=== PATIENT | female | born 1930 | race Asian ===

== ENCOUNTER 2018-08-17 12:01 | Inpatient (IN) | payer MEDICARE, OTHER ==
[2018-08-17 13:40] LABS: ANION GAP 13.5 (7.0-16.0); BUN - UREA NITROGEN 20 mg/dL (7-25); CALCIUM SERUM 10.2 mg/dL (8.6-10.3); CARBON DIOXIDE 26.4 mEq/L (21.0-31.0); CHLORIDE 103 mEq/L (98-107); CREATININE - SERUM 0.7 mg/dL (0.6-1.2); GLUCOSE 121 mg/dL (70-105); POTASSIUM SERUM 3.9 mEq/L (3.5-5.1); SODIUM SERUM 139 mEq/L (136-145)
[2018-08-17 14:08] LABS: HEMATOCRIT 47.5 % (41.0-60); HEMOGLOBIN 15.7 gm/dL (12-16); MEAN CELL VOLUME 88.7 fl (81-100); MEAN CORPUSCULAR HEMOGLOBIN 29.3 pg (27.0-31.0); RED BLOOD COUNT 5.36 Mil/cmm (3.80-5.20); RED CELL DISTRIBUTION WIDTH 14.3 % (11.5-20.0)
[2018-08-17 14:09] LABS: % BASOPHILS 0.6 % (0.0-2.0); % EOSINOPHILS 1.5 % (0.0-5.0); % MONOCYTES 7.2 % (2.0-10.0); % NEUTROPHILS 60.7 % (40.0-80.0); NEUTROPHILE ABSOLUTE 3.7 Th/cmm (1.8-8.0); PLATELET COUNT 264 Th/cmm (150-400)
[2018-08-17 14:10] LABS: EOSINOPHILE ABSOLUTE 0.1 Th/cmm (0.1-0.4); LYMPHOCYTE ABSOLUTE 1.8 Th/cmm (1.5-3.0); MONOCYTE ABSOLUTE 0.4 Th/cmm (0.3-1.0)
[2018-08-17 15:05] LABS: URINE SOURCE CATH
[2018-08-17 15:07] LABS: URINE BILIRUBIN NEGATIVE (NEGATIVE); URINE BLOOD TRACE (NEGATIVE); URINE GLUCOSE (UA) NEGATIVE (NEGATIVE); URINE KETONE NEGATIVE (NEGATIVE); URINE LEUKOCYTE ESTERASE TRACE (NEGATIVE); URINE MICROSCOPIC INDICATED? YES; URINE NITRATE POSITIVE (NEGATIVE); URINE PROTEIN NEGATIVE (NEGATIVE); URINE UROBILINOGEN 0.2 E.U./dL (0.2 - 1.0)
[2018-08-17 15:09] LABS: URINE COLOR YELLOW
[2018-08-17 15:12] LABS: URINE CLARITY CLOUDY (CLEAR)
[2018-08-17 15:17] LABS: URINE BACTERIA MANY /hpf (NONE SEEN); URINE COARSE GRANULAR CAST 0-2 /lpf (NONE SEEN); URINE EPITHELIAL CELLS MODERATE /lpf (FEW); URINE RBC 0-2 /hpf (0-5)
--- NOTE | 2018-08-17 16:22 | ED Physician Chart ---
ED Chief Complaint/HPI - Patient Information Date Seen:: 08/17/18 Time Seen:: 12:15 Allergies:: Allergies Allergy/AdvReac Type Severity Reaction Status Date / Time atropine Allergy Verified 08/17/18 12:07 tetanus toxoid, adsorbed Allergy Verified 08/17/18 12:07 Vitals:: Vital Signs - 8 hr 08/17/18 12:08 Temp 98.6 F HR 65 RR 16 BP 113/58 O2 Sat % 95 Review:: Nurse's Note Reviewed ED Review of Systems - Review of Systems General/Constitutional: No fever (non communicative) ED Past Medical History - Past Medical History Obtainable: No Past Medical History: Dementia Family Medical History - Family Member Mother History Unknown: Yes ED Physical Exam - Physical Examination General/Constitutional: No distress, Non-toxic appearing Head: Atraumatic Eyes: Lids, conjuctiva normal Skin: No ecchymosis ENMT: External ears, nose nl Neck: Full ROM w/o pain, No stridor Respiratory: Nl effort/Exclusion, Clear to Auscultation Cardio Vascular: RRR GI: No tenderness/rebounding/guarding : No CVA tenderness Extremities: Full ROM Neuro/Psych: Alert/oriented (unable conduct detailed neurological), Normal sensory exam ED Labs/Radiology/EKG Results - Lab Results Results: Laboratory Tests 08/17/18 08/17/18 08/17/18 13:10 13:10 15:03 WBC 6.0 RBC 5.36 H Hgb 15.7 Hct 47.5 MCV 88.7 MCH 29.3 MCHC Differential 33.0 RDW 14.3 Plt Count 264 MPV 7.5 Add Manual Diff Neutrophils % 60.7 Lymphocytes % 30.0 Monocytes % 7.2 Eosinophils % 1.5 Basophils % 0.6 Sodium 139 Potassium 3.9 Chloride 103 Carbon Dioxide 26.4 Anion Gap 13.5 BUN 20 Creatinine 0.7 Est GFR ( Amer) TNP Est GFR (Non-Af Amer) TNP BUN/Creatinine Ratio 28.6 Glucose 121 H Calcium 10.2 Urine Source CATH Urine Color YELLOW Urine Clarity CLOUDY H Urine pH 6.0 Ur Specific [place] >= 1.030 Urine Protein NEGATIVE Urine Glucose (UA) NEGATIVE Urine Ketones NEGATIVE Urine Blood TRACE Urine Nitrate POSITIVE H Urine Bilirubin NEGATIVE Urine Urobilinogen 0.2 Ur Leukocyte Esterase TRACE H Urine RBC 0-2 Urine WBC 2-5 Ur Epithelial Cells MODERATE Urine Bacteria MANY H Coarse Granular Casts 0-2 H ED Assessment - Assessment General Assessment: dementia ED Septic Shock - . Is Septic Shock (SBP<90, OR Lactate>4 mmol\L) present?: No - <6hrs of presentation: Vital Signs: Vital Signs - 8 hr 08/17/18 12:08 Temp 98.6 F HR 65 RR 16 BP 113/58 O2 Sat % 95 ED Reassessment (Disposition) - Reassessment Reassessment Condition:: Unchanged (attending admits for change in mental status )
[2018-08-17] MEDS: Levofloxacin 500mg/100mL 500 MG/100 ML BAG IV SCH (16:48)
[2018-08-17 16:49] VITALS: BP 137/67
[2018-08-17] MEDS: D5-0.45NS 1,000 ML IV SCH (21:19)
[2018-08-18 06:18] LABS: ALB/GLOB RATIO 1.1 (1.0-1.8); ALBUMIN 3.5 gm/dL (3.7-5.3); ALKALINE PHOSPHATASE 70 U/L (34-104); ANION GAP 16.1 (7.0-16.0); BILIRUBIN,TOTAL 0.6 mg/dL (0.3-1.0); BUN - UREA NITROGEN 16 mg/dL (7-25); CALCIUM SERUM 9.4 mg/dL (8.6-10.3); CARBON DIOXIDE 20.6 mEq/L (21.0-31.0); CHLORIDE 105 mEq/L (98-107); CHOLESTEROL 166 mg/dL (<200); CREATININE - SERUM 0.7 mg/dL (0.6-1.2); GLUCOSE 124 mg/dL (70-105); HDL -HIGH DENSITY LIPOPROTEIN 35 mg/dL (23-92); POTASSIUM SERUM 3.7 mEq/L (3.5-5.1); SGOT 23 U/L (13-39); SGPT/ALT 20 U/L (7-52); SODIUM SERUM 138 mEq/L (136-145); TOTAL PROTEIN,SERUM 6.6 gm/dL (6.0-8.3); TRIGLYCERIDES 154 mg/dL (<150)
--- NOTE | 2018-08-18 07:58 | History & Physical ---
ADMIT DATE: 08/18/2018 REQUESTING PHYSICIAN: Dr. Weinstein. REASON FOR CONSULTATION: Failure to thrive, poor p.o. intake. Thank you for asking us to see this patient in consultation. HISTORY OF PRESENT ILLNESS: This is an 88-year-old female with dementia who has been having worsening clinical status and failure to thrive. The patient has had poor p.o. intake according to charts. Her history is mainly limited from lack of patient's history as well as lack of documentation. She has a history of dementia, is here to assist with placement and has not been eating well. PAST MEDICAL HISTORY: Dementia. MEDICATIONS: Have been reviewed. SOCIAL HISTORY: Unable to obtain given the patient's current state. FAMILY HISTORY: Noncontributory given the patient's current state. REVIEW OF SYSTEMS: As in HPI. All other 12-point systems are negative. PHYSICAL EXAMINATION: VITAL SIGNS: Temperature 98.6, heart rate of 65, respiratory rate 16, blood pressure is 113/58, satting 95% on room air. GENERAL: She is in no acute distress, lying in bed. HEENT: Normocephalic, atraumatic. PERRLA positive. LUNGS: Clear bilaterally. No wheezes, rales or rhonchi. HEART: Regular rate and rhythm, normal S1, S2. ABDOMEN: Soft, nontender. Bowel sounds are positive. EXTREMITIES: Show no lower extremity edema. PSYCHIATRIC: Unable to assess neurologically. Grossly intact. LABORATORY DATA: Hemoglobin of 15.7, platelets count 264. Sodium 138, potassium 3.7. Albumin is 3.5. IMAGING: None available. ASSESSMENT AND PLAN: 1. This is an 88-year-old female with dementia and failure to thrive, who presents for potential placement as well as poor p.o. intake. 2. Poor p.o. intake. 3. Failure to thrive. 4. Protein calorie malnutrition. 5. Dementia. I would recommend obtaining a calorie count in this patient and assess exactly what her needs are at this time. I did advise the nursing staff to assist with her meals and if she is not adequately able to take p.o. intake, we will look for a possible swallow evaluation and/or PEG tube placement after discussing the risks, benefits and alternatives with POA. Thank you for allowing us to participate in this patient's care. [facility]# [id number]
--- NOTE | 2018-08-18 08:32 | Diagnostic Imaging Report ---
CT scan of the brain without intravenous contrast HISTORY: Stroke, CVA Total DLP equals 563 CTDI equals 31.4 Axial sections were obtained from the base of the skull to the vertex. There is prominence/enlargement of the ventricular system size. Associated enlargement of cerebral sulci and subarachnoid cisterns. Findings are consistent with changes of generalized cerebral atrophy. No acute parenchymal abnormalities. No acute cerebral hemorrhage. Hypodensity is seen within the supratentorial white matter regions without mass effect. The findings may be associated with chronic small vessel ischemic disease. No extra-axial masses or abnormal fluid collections. Evidence of fluid and cloudiness within the mastoid air cells. Findings consistent with inflammatory change. Severe dense atherosclerotic calcification noted in the region of the vertebral and basilar arteries at the base of the skull. IMPRESSION: 1. No acute abnormalities 2. Cerebral atrophy 3. Supratentorial white matter changes that may reflect chronic small vessel ischemic disease 4. Severe atherosclerotic vascular changes 5. Cloudy fluid-filled mastoid air cells consistent with inflammatory change.
[2018-08-18 10:19] LABS: % BASOPHILS 0.6 % (0.0-2.0); % EOSINOPHILS 1.5 % (0.0-5.0); % LYMPHOCYTES 25.1 % (20.0-50.0); % NEUTROPHILS 62.8 % (40.0-80.0); EOSINOPHILE ABSOLUTE 0.1 Th/cmm (0.1-0.4); HEMATOCRIT 48.2 % (41.0-60); HEMOGLOBIN 15.5 gm/dL (12-16); LYMPHOCYTE ABSOLUTE 1.9 Th/cmm (1.5-3.0); MEAN CORPUSCULAR HEMOGLOBIN 29.2 pg (27.0-31.0); MEAN CORPUSCULAR HGB CONC 32.1 pg (28.0-36.0); MONOCYTE ABSOLUTE 0.7 Th/cmm (0.3-1.0); NEUTROPHILE ABSOLUTE 4.7 Th/cmm (1.8-8.0); PLATELET COUNT 230 Th/cmm (150-400); RED CELL DISTRIBUTION WIDTH 14.2 % (11.5-20.0); WHITE BLOOD COUNT 7.4 Th/cmm (4.8-10.8)
[2018-08-18] MEDS: D5-0.45NS 1,000 ML IV SCH (10:23)
[2018-08-18] MEDS: Levofloxacin 500mg/100mL 500 MG/100 ML BAG IV SCH (15:17)
--- NOTE | 2018-08-18 21:19 | Internal Medicine Prog Note ---
Internal Medicine Subjective - Subjective Service Date: 08/18/18 Patient is:: awake, in bed, confused Patient Complaints of:: other (failure to thrive.) Per staff patient has:: no adverse event, no episodes of fall Internal Medicine Objective - Results Result Diagrams: 08/19/18 05:16 08/19/18 05:16 Recent Labs: Laboratory Last Values WBC 7.4 Th/cmm (4.8-10.8) D 08/18/18 05:30 RBC 5.30 Mil/cmm (3.80-5.20) H 08/18/18 05:30 Hgb 15.5 gm/dL (12-16) 08/18/18 05:30 Hct 48.2 % (41.0-60) 08/18/18 05:30 MCV 91.0 fl (81-100) 08/18/18 05:30 MCH 29.2 pg (27.0-31.0) 08/18/18 05:30 MCHC Differential 32.1 pg (28.0-36.0) 08/18/18 05:30 RDW 14.2 % (11.5-20.0) 08/18/18 05:30 Plt Count 230 Th/cmm (150-400) 08/18/18 05:30 MPV 7.9 fl 08/18/18 05:30 Add Manual Diff 08/17/18 13:10 Neutrophils % 62.8 % (40.0-80.0) 08/18/18 05:30 Lymphocytes % 25.1 % (20.0-50.0) 08/18/18 05:30 Monocytes % 10.0 % (2.0-10.0) 08/18/18 05:30 Eosinophils % 1.5 % (0.0-5.0) 08/18/18 05:30 Basophils % 0.6 % (0.0-2.0) 08/18/18 05:30 Sodium 138 mEq/L (136-145) 08/18/18 05:30 Potassium 3.7 mEq/L (3.5-5.1) 08/18/18 05:30 Chloride 105 mEq/L (98-107) 08/18/18 05:30 Carbon Dioxide 20.6 mEq/L (21.0-31.0) L 08/18/18 05:30 Anion Gap 16.1 (7.0-16.0) H 08/18/18 05:30 BUN 16 mg/dL (7-25) 08/18/18 05:30 Creatinine 0.7 mg/dL (0.6-1.2) 08/18/18 05:30 Est GFR ( Amer) TNP 08/18/18 05:30 Est GFR (Non-Af Amer) TNP 08/18/18 05:30 BUN/Creatinine Ratio 22.9 08/18/18 05:30 Glucose 124 mg/dL (70-105) H 08/18/18 05:30 POC Glucose 108 MG/DL (70 - 105) H 08/17/18 16:03 Calcium 9.4 mg/dL (8.6-10.3) 08/18/18 05:30 Total Bilirubin 0.6 mg/dL (0.3-1.0) 08/18/18 05:30 AST 23 U/L (13-39) 08/18/18 05:30 ALT 20 U/L (7-52) 08/18/18 05:30 Alkaline Phosphatase 70 U/L (34-104) 08/18/18 05:30 Total Protein 6.6 gm/dL (6.0-8.3) 08/18/18 05:30 Albumin 3.5 gm/dL (3.7-5.3) L 08/18/18 05:30 Globulin 3.1 gm/dL 08/18/18 05:30 Albumin/Globulin Ratio 1.1 (1.0-1.8) 08/18/18 05:30 Triglycerides 154 mg/dL (<150) H 08/18/18 05:30 Cholesterol 166 mg/dL (<200) 08/18/18 05:30 LDL Cholesterol Direct 117 mg/dL (75-193) 08/18/18 05:30 HDL Cholesterol 35 mg/dL (23-92) 08/18/18 05:30 TSH 2.06 uIU/ml (0.34-5.60) 08/18/18 05:30 Urine Source CATH 08/17/18 15:03 Urine Color YELLOW 08/17/18 15:03 Urine Clarity CLOUDY (CLEAR) H 08/17/18 15:03 Urine pH 6.0 (4.6 - 8.0) 08/17/18 15:03 Ur Specific [place] >= 1.030 (1.005-1.030) 08/17/18 15:03 Urine Protein NEGATIVE mg/dL (NEGATIVE) 08/17/18 15:03 Urine Glucose (UA) NEGATIVE mg/dL (NEGATIVE) 08/17/18 15:03 Urine Ketones NEGATIVE mg/dL (NEGATIVE) 08/17/18 15:03 Urine Blood TRACE (NEGATIVE) 08/17/18 15:03 Urine Nitrate POSITIVE (NEGATIVE) H 08/17/18 15:03 Urine Bilirubin NEGATIVE (NEGATIVE) 08/17/18 15:03 Urine Urobilinogen 0.2 E.U./dL (0.2 - 1.0) 08/17/18 15:03 Ur Leukocyte Esterase TRACE (NEGATIVE) H 08/17/18 15:03 Urine RBC 0-2 /hpf (0-5) 08/17/18 15:03 Urine WBC 2-5 /hpf (0-5) 08/17/18 15:03 Ur Epithelial Cells MODERATE /lpf (FEW) 08/17/18 15:03 Urine Bacteria MANY /hpf (NONE SEEN) H 08/17/18 15:03 Coarse Granular Casts 0-2 /lpf (NONE SEEN) H 08/17/18 15:03 - Physical Exam Vitals and I&O: Vital Signs Temp 97.5 F 08/18/18 15:00 Pulse 74 08/18/18 15:00 Resp 18 08/18/18 16:28 BP 145/77 08/18/18 15:00 Pulse Ox 100 08/18/18 15:00 Intake & Output 08/18/18 08/18/18 08/19/18 06:59 18:59 06:59 Intake Total 1180 Balance 1180 Weight (lbs) 47.627 kg Intake: Intake, IV Amount 980 D5-0.45NS 1,000 ml @ 75 980 mls/hr IV .[id number] [facility] Rx #:[id number] Oral 200 Other: # Voids 3 # Bowel Movements 0 Weight Source Bedscale Active Medications: Current Medications Levofloxacin (Levaquin Pb) 500 mg in 100 mls @ 100 mls/hr IV Q24HR [facility] Stop: 10/16/18 15:59 Last Admin: 08/18/18 15:17 Dose: 100 mls/hr Dextrose/Sodium Chloride (D5-0.45ns) 1,000 mls @ 75 mls/hr IV .[id number] [facility] Stop: 10/16/18 19:59 Last Admin: 08/18/18 10:23 Dose: 75 mls/hr Lorazepam (Ativan) 1 mg PO BID PRN; Protocol PRN Reason: Restlessness Stop: 10/16/18 19:52 Last Admin: 08/17/18 21:17 Dose: 1 mg Physical Exam: 88 y/o female patient is worsening clinical status and failure to thrive. General: weak, demented HEENT: NC/AT, PERRLA Neck: Supple Lungs: CTAB Cardiovascular: RRR, Normal S1 Abdomen: soft, non-tender Extremities: clear Neurological: no change Internal Medicine Assmt/Plan - Assessment Assessment: Dementia. Failure to thrive. Poor oral intake. Protein calorie nutrition. - Plan Plan: Continuation of care. Monitor Labs. Continue present meds as directed. Monitor Diet/Nutritional support. Psych management per Psych. Pain Management. Fall precaution, frequent nursing rounds, and as needed restraints to prevent fall. Safety precaution. Supportive care. Continue collaborating with consulting specialists, case management and nursing team. Will Monitor patient and continue current treatment plan as ordered. Nutritional Asmnt/Malnutr-PDOC - Dietary Evaluation Malnutrition Findings (Please click <Entered> for more info): see orders.
--- NOTE | 2018-08-19 02:21 | Consultation ---
DATE OF CONSULTATION: 08/18/2018 NEUROLOGY CONSULTATION HISTORY OF PRESENT ILLNESS: An 88-year-old female with weakness. The patient is getting more confused, more weak, difficulty ambulating. PAST MEDICAL HISTORY: Dementia. MEDICATIONS: Per reconciliation. SOCIAL HISTORY: Does not smoke or drink. SURGICAL HISTORY: None recently. REVIEW OF SYSTEMS: Twelve point negative except for above. PHYSICAL EXAMINATION: VITAL SIGNS: Temperature 96.7, blood pressure 130/65, pulse is 66%. NECK: Supple. No neck bruits. CARDIAC: Normal heart sounds. LUNGS: Clear. NEUROLOGIC: The patient is awake. She will smile. She gives her name, but cannot even give me the age. She did not know what day or month. She is able to name simple objects such as pen. CRANIAL: Pupils react to light. No facial weakness. MOTOR: She will lift arms up about 4+/5, legs are about 4/5. Reflexes -1 upper extremity, difficulty getting at the knees and ankles. INVESTIGATIONS: CT scan shows some white matter changes, but otherwise no acute process. LABORATORY DATA: WBC 7.4, hemoglobin 15.5, platelets normal. Sodium 138, potassium 3.7, BUN and creatinine are okay. TSH okay. UA positive for wbc's and bacteria. ASSESSMENT: 1. Weakness. 1. Encephalopathy. 2. Dementia. 3. Possible urinary tract infection. MANAGEMENT: The patient will have lab studies done. JOB# [id number]
--- NOTE | 2018-08-19 04:34 | Consultation ---
DATE OF CONSULTATION: 08/18/2018 INFECTIOUS DISEASE CONSULTATION REFERRING PHYSICIAN: Dr. Weinstein. REASON FOR CONSULTATION: UTI. HISTORY OF PRESENT ILLNESS: The patient is an 88-year-old female with past medical history of dementia, admitted to the hospital for failure to thrive, poor oral intake, and confusion. On initial evaluation, the patient's temperature was 98.6 degrees Fahrenheit and WBC count was 6000. Further workup revealed UTI and started on Levaquin. ID consult was called for further antibiotic management. PAST MEDICAL HISTORY: Includes dementia. ALLERGIES: ATROVENT, TETANUS TOXOID. MEDICATIONS: As per medication reconciliation sheet. Antibiotic dubose, Levaquin. FAMILY HISTORY: Not available. REVIEW OF SYSTEMS: GENERAL: The patient has no fever, no chills. HEENT: No diplopia, no photophobia, no sore throat. RESPIRATORY: No cough, no shortness of breath. CARDIOVASCULAR: No chest pain or palpitation. GASTROINTESTINAL: No nausea, no vomiting, no diarrhea, no constipation. The patient has poor oral intake. GENITOURINARY: No dysuria, no hematuria. PHYSICAL EXAMINATION: VITAL SIGNS: Current vital signs shows temperature 97.5 degrees Fahrenheit, pulse 82, respiration is 18, blood pressure 168/68. GENERAL: The patient is comfortable, lying in bed, in no acute distress. HEENT: Head is normocephalic, atraumatic. Oral cavity moist, pink tongue. NECK: Supple. No JVD, no carotid bruit. Trachea in midline. CHEST: Bilateral breath sounds. No crackles or wheezing. HEART: S1, S2 within normal limits. Regular rhythm. No murmur or gallop. ABDOMEN: Soft, nontender, nondistended. Bowel sounds present. EXTREMITIES: No cyanosis, no clubbing, no edema. NEUROLOGIC: Alert and awake ____. Speech is clear. LABORATORY DATA: Current lab shows WBC count is 7200. Sodium is 144, potassium 2.7, chloride 106, bicarbonate is 22.4, BUN is 80, creatinine 2.4. IMPRESSION: 1. Urinary tract infection. 2. Failure to thrive. 3. Dementia. 4. Gastroparesis. RECOMMENDATIONS: We will continue ____. Continue Levaquin. Depending on the culture, we will define final antibiotic therapy. Gram-negative rods more than 100,000. [facility]# [id number]
[2018-08-19 05:49] LABS: % BASOPHILS 0.3 % (0.0-2.0); % EOSINOPHILS 0.8 % (0.0-5.0); % MONOCYTES 8.9 % (2.0-10.0); EOSINOPHILE ABSOLUTE 0.1 Th/cmm (0.1-0.4); LYMPHOCYTE ABSOLUTE 1.6 Th/cmm (1.5-3.0); MEAN CELL VOLUME 87.5 fl (81-100); MEAN CORPUSCULAR HEMOGLOBIN 28.8 pg (27.0-31.0); MEAN CORPUSCULAR HGB CONC 32.9 pg (28.0-36.0); MONOCYTE ABSOLUTE 0.6 Th/cmm (0.3-1.0); RED BLOOD COUNT 4.86 Mil/cmm (3.80-5.20); RED CELL DISTRIBUTION WIDTH 12.8 % (11.5-20.0); WHITE BLOOD COUNT 6.3 Th/cmm (4.8-10.8)
[2018-08-19 05:59] LABS: HEMATOCRIT 42.6 % (41.0-60); PLATELET COUNT 281 Th/cmm (150-400)
[2018-08-19] MEDS: D5-0.45NS 1,000 ML IV SCH ×2 (06:07→12:16)
[2018-08-19 06:19] LABS: ANION GAP 11.4 (7.0-16.0); BUN - UREA NITROGEN 7 mg/dL (7-25); CALCIUM SERUM 9.4 mg/dL (8.6-10.3); CHLORIDE 107 mEq/L (98-107); CREATININE - SERUM 0.7 mg/dL (0.6-1.2); GLUCOSE 100 mg/dL (70-105); POTASSIUM SERUM 4.4 mEq/L (3.5-5.1); SODIUM SERUM 138 mEq/L (136-145)
[2018-08-19] MEDS ORDERED: Atenolol 100mg Tab PO SCH (09:00)
--- NOTE | 2018-08-19 13:23 | Internal Medicine Prog Note ---
Internal Medicine Subjective - Subjective Service Date: 08/19/18 Patient is:: awake, in bed, confused Patient Complaints of:: other (failure to thrive.) Per staff patient has:: no adverse event, no episodes of fall Internal Medicine Objective - Results Result Diagrams: 08/19/18 05:16 08/19/18 05:16 Recent Labs: Laboratory Last Values WBC 6.3 Th/cmm (4.8-10.8) 08/19/18 05:16 RBC 4.86 Mil/cmm (3.80-5.20) 08/19/18 05:16 Hgb 14.0 gm/dL (12-16) 08/19/18 05:16 Hct 42.6 % (41.0-60) D 08/19/18 05:16 MCV 87.5 fl (81-100) 08/19/18 05:16 MCH 28.8 pg (27.0-31.0) 08/19/18 05:16 MCHC Differential 32.9 pg (28.0-36.0) 08/19/18 05:16 RDW 12.8 % (11.5-20.0) 08/19/18 05:16 Plt Count 281 Th/cmm (150-400) D 08/19/18 05:16 MPV 6.9 fl 08/19/18 05:16 Add Manual Diff 08/17/18 13:10 Neutrophils % 64.0 % (40.0-80.0) 08/19/18 05:16 Lymphocytes % 26.0 % (20.0-50.0) 08/19/18 05:16 Monocytes % 8.9 % (2.0-10.0) 08/19/18 05:16 Eosinophils % 0.8 % (0.0-5.0) 08/19/18 05:16 Basophils % 0.3 % (0.0-2.0) 08/19/18 05:16 ESR 35 mm/hr (0-30) H 08/19/18 05:16 Sodium 138 mEq/L (136-145) 08/19/18 05:16 Potassium 4.4 mEq/L (3.5-5.1) 08/19/18 05:16 Chloride 107 mEq/L (98-107) 08/19/18 05:16 Carbon Dioxide 24.0 mEq/L (21.0-31.0) 08/19/18 05:16 Anion Gap 11.4 (7.0-16.0) 08/19/18 05:16 BUN 7 mg/dL (7-25) 08/19/18 05:16 Creatinine 0.7 mg/dL (0.6-1.2) 08/19/18 05:16 Est GFR ( Amer) TNP 08/19/18 05:16 Est GFR (Non-Af Amer) TNP 08/19/18 05:16 BUN/Creatinine Ratio 10.0 08/19/18 05:16 Glucose 100 mg/dL (70-105) 08/19/18 05:16 POC Glucose 108 MG/DL (70 - 105) H 08/17/18 16:03 Calcium 9.4 mg/dL (8.6-10.3) 08/19/18 05:16 Total Bilirubin 0.6 mg/dL (0.3-1.0) 08/18/18 05:30 AST 23 U/L (13-39) 08/18/18 05:30 ALT 20 U/L (7-52) 08/18/18 05:30 Alkaline Phosphatase 70 U/L (34-104) 08/18/18 05:30 Creatine Kinase 177 U/L (30-223) 08/19/18 05:16 C-Reactive Protein < 0.2 mg/dL (0.0-0.9) 08/19/18 05:16 Total Protein 6.6 gm/dL (6.0-8.3) 08/18/18 05:30 Albumin 3.5 gm/dL (3.7-5.3) L 08/18/18 05:30 Globulin 3.1 gm/dL 08/18/18 05:30 Albumin/Globulin Ratio 1.1 (1.0-1.8) 08/18/18 05:30 Triglycerides 154 mg/dL (<150) H 08/18/18 05:30 Cholesterol 166 mg/dL (<200) 08/18/18 05:30 LDL Cholesterol Direct 117 mg/dL (75-193) 08/18/18 05:30 HDL Cholesterol 35 mg/dL (23-92) 08/18/18 05:30 TSH 2.06 uIU/ml (0.34-5.60) 08/18/18 05:30 Urine Source CATH 08/17/18 15:03 Urine Color YELLOW 08/17/18 15:03 Urine Clarity CLOUDY (CLEAR) H 08/17/18 15:03 Urine pH 6.0 (4.6 - 8.0) 08/17/18 15:03 Ur Specific [place] >= 1.030 (1.005-1.030) 08/17/18 15:03 Urine Protein NEGATIVE mg/dL (NEGATIVE) 08/17/18 15:03 Urine Glucose (UA) NEGATIVE mg/dL (NEGATIVE) 08/17/18 15:03 Urine Ketones NEGATIVE mg/dL (NEGATIVE) 08/17/18 15:03 Urine Blood TRACE (NEGATIVE) 08/17/18 15:03 Urine Nitrate POSITIVE (NEGATIVE) 08/17/18 15:03 Urine Bilirubin NEGATIVE (NEGATIVE) 08/17/18 15:03 Urine Urobilinogen 0.2 E.U./dL (0.2 - 1.0) 08/17/18 15:03 Ur Leukocyte Esterase TRACE (NEGATIVE) 08/17/18 15:03 Urine RBC 0-2 /hpf (0-5) 08/17/18 15:03 Urine WBC 2-5 /hpf (0-5) 08/17/18 15:03 Ur Epithelial Cells MODERATE /lpf (FEW) 08/17/18 15:03 Urine Bacteria MANY /hpf (NONE SEEN) H 08/17/18 15:03 Coarse Granular Casts 0-2 /lpf (NONE SEEN) H 08/17/18 15:03 - Physical Exam Vitals and I&O: Vital Signs Temp 97.5 F 08/19/18 08:00 Pulse 73 08/19/18 08:27 Resp 18 08/19/18 09:00 BP 146/78 08/19/18 08:27 Pulse Ox 97 08/19/18 08:00 Intake & Output 08/18/18 08/19/18 08/19/18 18:59 06:59 18:59 Intake Total 1180 1000 461.25 Balance 1180 1000 461.25 Weight (lbs) 105 lb Intake: Intake, IV Amount 980 1000 461.25 D5-0.45NS 1,000 ml @ 75 980 1000 461.25 mls/hr IV .[id number] [facility] Rx #:[id number] Oral 200 Other: # Voids 3 # Bowel Movements 0 Weight Source Bedscale Active Medications: Current Medications Atenolol (Tenormin) 25 mg PO DAILY [facility] Stop: 10/18/18 08:59 Last Admin: 08/19/18 12:17 Dose: Not Given Levofloxacin (Levaquin Pb) 500 mg in 100 mls @ 100 mls/hr IV Q24HR [facility] Stop: 10/16/18 15:59 Last Admin: 08/18/18 15:17 Dose: 100 mls/hr Dextrose/Sodium Chloride (D5-0.45ns) 1,000 mls @ 75 mls/hr IV .[id number] [facility] Stop: 10/16/18 19:59 Last Admin: 08/19/18 12:16 Dose: 75 mls/hr Lorazepam (Ativan) 1 mg PO BID PRN; Protocol PRN Reason: Restlessness Stop: 10/16/18 19:52 Last Admin: 08/18/18 21:17 Dose: 1 mg Losartan Potassium (Cozaar) 25 mg PO DAILY [facility] Stop: 10/17/18 22:59 Last Admin: 08/19/18 08:27 Dose: 25 mg General: weak, demented HEENT: NC/AT, PERRLA Neck: Supple Lungs: CTAB Cardiovascular: RRR, Normal S1 Abdomen: soft, non-tender Extremities: clear Neurological: no change Internal Medicine Assmt/Plan - Assessment Assessment: Dementia. Failure to thrive. Poor oral intake. Protein calorie nutrition. - Plan Plan: Continuation of care. Monitor Labs. Continue present meds as directed. Monitor Diet/Nutritional support. Psych management per Psych. Pain Management. Fall precaution, frequent nursing rounds, and as needed restraints to prevent fall. Safety precaution. Supportive care. Continue collaborating with consulting specialists, case management and nursing team. Will Monitor patient and continue current treatment plan as ordered. Nutritional Asmnt/Malnutr-PDOC - Dietary Evaluation Malnutrition Findings (Please click <Entered> for more info): Nutritional Asmnt/Malnutrition Start: 08/18/18 21: 27 Text: Status: Active Freq: Protocol: Document 08/18/18 21:27 [email or web address] (Rec: 08/18/18 21:39 [email or web address] [email or web address]) Nutritional Asmnt/Malnutrition Patient General Information Nutritional Screening Consult Diagnosis ALOC Pertinent Medical Hx/Surgical Hx dementia Subjective Information unable to speak with pt d/t aloc. pt with poor po intakes, per RN. 10-20% food intakes noted per meal/nutrition activity. Current Diet Order/ Nutrition Support Mechanical Soft Patient / S.O Not Indicated Pertinent Medications D5 1/2 NS 75 ml/hr Pertinent Labs Glucose 124 Nutritional Hx/Data Height 5 ft 3 in Height (Calculated Centimeters) 160.0 Current Weight (lbs) 105 lb Weight (Calculated Kilograms) 47.6 Weight (Calculated Grams) 84265.2 [place] Body Weight 115 lb % [place] Body Weight 91 Body Mass Index (BMI) 18.6 Weight Status Underweight GI Symptoms GI Symptoms None Difficult in: Chewing Food Allergies No Skin Integrity/Comment: susan 12; skin intact; 08/18 wound care note reviewed. Current %PO Negligible < 25% Estimated Nutritional Goals BEE in Kcals: Using Current wt Calories/Kcals/Kg 30-35 Kcals Calculated [id number] Protein: Using Current wt Protein g/k.3-1.4 Protein Calculated 58-62 Fluid: ml 2155-5903 (1 ml/kcal) Nutritional Problem 1. 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 Intervention/Recommendation Recommendations by RD Increase Calorie Intake Add supplement feedings Comments suggest add Ensure Enlive TID to support optimal nutrient intake/prevent nutrition related weight loss during admit. Expected Outcomes/Goals Expected Outcomes/Goals PO intakes >50% of meals and/ or PO supplements. Wt maintenance within 2 kg CBW (45 kg) electronically signed by: Jodie Mack, MPH, RDN Clinical Dietitian 08/18/18 9:40 PM FU HR 08/19-08/20
--- NOTE | 2018-08-19 14:23 | GI Progress Note ---
Subjective - Review of Systems Service Date: 08/19/18 Events since last encounter: no new events GI OBJECTIVE - Results Result Diagrams: 08/19/18 05:16 08/19/18 05:16 Recent Labs: Laboratory Last Values WBC 6.3 Th/cmm (4.8-10.8) 08/19/18 05:16 RBC 4.86 Mil/cmm (3.80-5.20) 08/19/18 05:16 Hgb 14.0 gm/dL (12-16) 08/19/18 05:16 Hct 42.6 % (41.0-60) D 08/19/18 05:16 MCV 87.5 fl (81-100) 08/19/18 05:16 MCH 28.8 pg (27.0-31.0) 08/19/18 05:16 MCHC Differential 32.9 pg (28.0-36.0) 08/19/18 05:16 RDW 12.8 % (11.5-20.0) 08/19/18 05:16 Plt Count 281 Th/cmm (150-400) D 08/19/18 05:16 MPV 6.9 fl 08/19/18 05:16 Add Manual Diff 08/17/18 13:10 Neutrophils % 64.0 % (40.0-80.0) 08/19/18 05:16 Lymphocytes % 26.0 % (20.0-50.0) 08/19/18 05:16 Monocytes % 8.9 % (2.0-10.0) 08/19/18 05:16 Eosinophils % 0.8 % (0.0-5.0) 08/19/18 05:16 Basophils % 0.3 % (0.0-2.0) 08/19/18 05:16 ESR 35 mm/hr (0-30) H 08/19/18 05:16 Sodium 138 mEq/L (136-145) 08/19/18 05:16 Potassium 4.4 mEq/L (3.5-5.1) 08/19/18 05:16 Chloride 107 mEq/L (98-107) 08/19/18 05:16 Carbon Dioxide 24.0 mEq/L (21.0-31.0) 08/19/18 05:16 Anion Gap 11.4 (7.0-16.0) 08/19/18 05:16 BUN 7 mg/dL (7-25) 08/19/18 05:16 Creatinine 0.7 mg/dL (0.6-1.2) 08/19/18 05:16 Est GFR ( Amer) TNP 08/19/18 05:16 Est GFR (Non-Af Amer) TNP 08/19/18 05:16 BUN/Creatinine Ratio 10.0 08/19/18 05:16 Glucose 100 mg/dL (70-105) 08/19/18 05:16 POC Glucose 108 MG/DL (70 - 105) H 08/17/18 16:03 Calcium 9.4 mg/dL (8.6-10.3) 08/19/18 05:16 Total Bilirubin 0.6 mg/dL (0.3-1.0) 08/18/18 05:30 AST 23 U/L (13-39) 08/18/18 05:30 ALT 20 U/L (7-52) 08/18/18 05:30 Alkaline Phosphatase 70 U/L (34-104) 08/18/18 05:30 Creatine Kinase 177 U/L (30-223) 08/19/18 05:16 C-Reactive Protein < 0.2 mg/dL (0.0-0.9) 08/19/18 05:16 Total Protein 6.6 gm/dL (6.0-8.3) 08/18/18 05:30 Albumin 3.5 gm/dL (3.7-5.3) L 08/18/18 05:30 Globulin 3.1 gm/dL 08/18/18 05:30 Albumin/Globulin Ratio 1.1 (1.0-1.8) 08/18/18 05:30 Triglycerides 154 mg/dL (<150) H 08/18/18 05:30 Cholesterol 166 mg/dL (<200) 08/18/18 05:30 LDL Cholesterol Direct 117 mg/dL (75-193) 08/18/18 05:30 HDL Cholesterol 35 mg/dL (23-92) 08/18/18 05:30 TSH 2.06 uIU/ml (0.34-5.60) 08/18/18 05:30 Urine Source CATH 08/17/18 15:03 Urine Color YELLOW 08/17/18 15:03 Urine Clarity CLOUDY (CLEAR) H 08/17/18 15:03 Urine pH 6.0 (4.6 - 8.0) 08/17/18 15:03 Ur Specific [place] >= 1.030 (1.005-1.030) 08/17/18 15:03 Urine Protein NEGATIVE mg/dL (NEGATIVE) 08/17/18 15:03 Urine Glucose (UA) NEGATIVE mg/dL (NEGATIVE) 08/17/18 15:03 Urine Ketones NEGATIVE mg/dL (NEGATIVE) 08/17/18 15:03 Urine Blood TRACE (NEGATIVE) 08/17/18 15:03 Urine Nitrate POSITIVE (NEGATIVE) H 08/17/18 15:03 Urine Bilirubin NEGATIVE (NEGATIVE) 08/17/18 15:03 Urine Urobilinogen 0.2 E.U./dL (0.2 - 1.0) 08/17/18 15:03 Ur Leukocyte Esterase TRACE (NEGATIVE) H 08/17/18 15:03 Urine RBC 0-2 /hpf (0-5) 08/17/18 15:03 Urine WBC 2-5 /hpf (0-5) 08/17/18 15:03 Ur Epithelial Cells MODERATE /lpf (FEW) 08/17/18 15:03 Urine Bacteria MANY /hpf (NONE SEEN) H 08/17/18 15:03 Coarse Granular Casts 0-2 /lpf (NONE SEEN) H 08/17/18 15:03 - Physical Exam Vitals and I&O: Vital Signs Temp 97.5 F 08/19/18 08:00 Pulse 73 08/19/18 08:27 Resp 18 08/19/18 09:00 BP 146/78 08/19/18 08:27 Pulse Ox 97 08/19/18 08:00 Intake & Output 08/18/18 08/19/18 08/19/18 18:59 06:59 18:59 Intake Total 1180 1000 461.25 Balance 1180 1000 461.25 Weight (lbs) 47.627 kg Intake: Intake, IV Amount 980 1000 461.25 D5-0.45NS 1,000 ml @ 75 980 1000 461.25 mls/hr IV .[id number] [facility] Rx #:[id number] Oral 200 Other: # Voids 3 # Bowel Movements 0 Weight Source Bedscale Active Medications: Current Medications Atenolol (Tenormin) 25 mg PO DAILY [facility] Stop: 10/18/18 08:59 Levofloxacin (Levaquin Pb) 500 mg in 100 mls @ 100 mls/hr IV Q24HR [facility] Stop: 10/16/18 15:59 Last Admin: 08/18/18 15:17 Dose: 100 mls/hr Dextrose/Sodium Chloride (D5-0.45ns) 1,000 mls @ 75 mls/hr IV .[id number] [facility] Stop: 10/16/18 19:59 Last Admin: 08/19/18 12:16 Dose: 75 mls/hr Lorazepam (Ativan) 1 mg PO BID PRN; Protocol PRN Reason: Restlessness Stop: 10/16/18 19:52 Last Admin: 08/18/18 21:17 Dose: 1 mg Losartan Potassium (Cozaar) 25 mg PO DAILY [facility] Stop: 10/17/18 22:59 Last Admin: 08/19/18 08:27 Dose: 25 mg General: Cooperative HEENT: Atraumatic, PERRLA, EOMI Neck: Supple Cardiovascular: Regular rate, Normal S1, Normal S2 Lungs: Clear to auscultation Assessment/Plan - Assessment Assessment: 1. Poor po intake 2. protein calorie malnutrition 3. Dementia -calorie count -consider PEG -supportive management
[2018-08-19] MEDS: Levofloxacin 500mg/100mL 500 MG/100 ML BAG IV SCH (18:15)
--- NOTE | 2018-08-19 18:43 | History and Physical ---
History of Present Illness - HPI Chief Complaint: 88 y/o patient was brought into ER due to poor oral intake. HPI: 88 y/o patient was admitted to [facility] on 08/17/2018 due to poor oral intake. Patient has history of Dementia. Patient had an ER assessment and a complete workup was done. Patient was diagnosed with Poor oral intake, Failure to thrive, Protein calorie malnutrition and Dementia. Patient will have GI consult and I will follow, treat and monitor patient. Patient will continue current treatment plan as ordered. 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 GI: Report: No Pertinent Hx Psych: Report: No Pertinent Hx Musculoskeletal: Report: No Pertinent Hx Rheumatologic: Report: No pertinent Hx Infectious Disease: Report: No Pertinent Hx Renal/: Report: No Pertinent Hx Endocrine: Report: No Pertinent Hx Dermatology: Report: No Pertinent Hx - Past Surgical History Past Surgical History: No pertinent Hx Family Medical History - Family Member Mother History Unknown: Yes Ethnicity: Unknown Living Status: Unknown Social History Smoke: No Alcohol: None Drugs: None Lives: Other Domestic Violence: Negative Health Maintenance Health Maintenance: Other (see chart.) - Medications Home Medications: Home Medication Medication Instructions Recorded Type Acetaminophen [Pain Reliever] 650 mg PO Q4H PRN 08/17/18 History Atenolol [Tenormin*] 25 mg PO DAILY 08/17/18 History Cholecalciferol (Vitamin D3) 1 cap PO DAILY 08/17/18 History [Vitamin D3] Docusate Sodium [Colace] 100 mg PO HS 08/17/18 History Fleet Enema 118 ml RC DAILY PRN 08/17/18 History Ibuprofen 400 mg PO Q6H PRN 08/17/18 History Losartan Potassium [Cozaar] 25 mg PO DAILY 08/17/18 History Magnesium Hydroxide [Milk of 30 ml PO DAILY PRN 08/17/18 History Magnesia] Other Medications: Please see medication reconciliation sheet. - Allergies Allergies/Adverse Reactions: Allergies Allergy/AdvReac Type Severity Reaction Status Date / Time atropine Allergy Verified 08/17/18 12:07 tetanus toxoid, adsorbed Allergy Verified 08/17/18 12:07 Review of Systems - Review of Systems Review of Systems: 88 y/o female patient has poor oral intake. Constitutional: Report: Weakness Eyes: Report: No Significant ENT: Report: No Significant Respiratory: Report: No Significant Cardiovascular: Report: No Significant Gastrointestinal: Report: No Significant Genitourinary: Report: No Significant Musculoskeletal: Report: No Significant Skin: Report: No Significant Neurological: Report: Weakness, Confusion Physical Exam - Physical Exam HEENT: Report: Ears Nose Throat within normal limits Neck: Report: Within normal limits Cardiovascular Systems: Report: +s1/s2 noted Respiratory: Report: Breath Sounds are within normal limits Abdomen: Report: Non-tender to palpation Back: Report: Inspection of back is within normal limits. Extremities: Report: Non-tender to palpation. Skin: Report: Color of skin is within normal limits Neuro/Psych: Report: Mood affect is within normal limits - Lab Results All Lab Results last 24 hours: Laboratory Results - last 24 hr 08/19/18 08/19/18 08/19/18 05:16 05:16 05:16 WBC RBC Hgb Hct MCV MCH MCHC Differential RDW Plt Count MPV Neutrophils % Lymphocytes % Monocytes % Eosinophils % Basophils % ESR 35 H Sodium Potassium Chloride Carbon Dioxide Anion Gap BUN Creatinine Est GFR ( Amer) Est GFR (Non-Af Amer) BUN/Creatinine Ratio Glucose Calcium Creatine Kinase 177 C-Reactive Protein < 0.2 08/19/18 08/19/18 05:16 05:16 WBC 6.3 RBC 4.86 Hgb 14.0 Hct 42.6 D MCV 87.5 MCH 28.8 MCHC Differential 32.9 RDW 12.8 Plt Count 281 D MPV 6.9 Neutrophils % 64.0 Lymphocytes % 26.0 Monocytes % 8.9 Eosinophils % 0.8 Basophils % 0.3 ESR Sodium 138 Potassium 4.4 Chloride 107 Carbon Dioxide 24.0 Anion Gap 11.4 BUN 7 Creatinine 0.7 Est GFR ( Amer) TNP Est GFR (Non-Af Amer) TNP BUN/Creatinine Ratio 10.0 Glucose 100 Calcium 9.4 Creatine Kinase C-Reactive Protein Microbiology 08/17/18 15:03 Urine Culture - Final Urine,Catheterized Escherichia Coli 08/17/18 16:00 - Final Nares NO MRSA ISOLATED - Assessment Assessment: Dementia. Failure to thrive. Poor oral intake. Protein calorie nutrition. - Plan Plan: Continuation of care. Followup with GI. Monitor Labs. Continue present meds as directed. Monitor Diet/Nutritional support. Psych management per Psych. Pain Management. Fall precaution, frequent nursing rounds, and as needed restraints to prevent fall. Safety precaution. Supportive care. Continue collaborating with consulting specialists, case management and nursing team. Will Monitor patient and continue current treatment plan as ordered.
[2018-08-20] MEDS: D5-0.45NS 1,000 ML IV SCH (00:33)
[2018-08-20 05:28] LABS: % BASOPHILS 0.9 % (0.0-2.0); % LYMPHOCYTES 28.3 % (20.0-50.0); % MONOCYTES 9.5 % (2.0-10.0); % NEUTROPHILS 59.3 % (40.0-80.0); BASOPHILE ABSOLUTE 0.1 Th/cumm (0-0.2); EOSINOPHILE ABSOLUTE 0.1 Th/cmm (0.1-0.4); HEMATOCRIT 41.2 % (41.0-60); HEMOGLOBIN 13.5 gm/dL (12-16); LYMPHOCYTE ABSOLUTE 1.7 Th/cmm (1.5-3.0); MEAN CELL VOLUME 88.4 fl (81-100); MEAN CORPUSCULAR HGB CONC 32.8 pg (28.0-36.0); MONOCYTE ABSOLUTE 0.6 Th/cmm (0.3-1.0); NEUTROPHILE ABSOLUTE 3.5 Th/cmm (1.8-8.0); PLATELET COUNT 245 Th/cmm (150-400); RED BLOOD COUNT 4.66 Mil/cmm (3.80-5.20); RED CELL DISTRIBUTION WIDTH 13.3 % (11.5-20.0)
[2018-08-20 05:40] LABS: ANION GAP 11.2 (7.0-16.0); BUN - UREA NITROGEN 6 mg/dL (7-25); CALCIUM SERUM 9.1 mg/dL (8.6-10.3); CARBON DIOXIDE 23.2 mEq/L (21.0-31.0); CHLORIDE 105 mEq/L (98-107); CREATININE - SERUM 0.6 mg/dL (0.6-1.2); GLUCOSE 108 mg/dL (70-105); POTASSIUM SERUM 3.4 mEq/L (3.5-5.1); SODIUM SERUM 136 mEq/L (136-145)
[2018-08-20] MEDS ORDERED: Potassium Chloride 20 mEq ER Tab PO ONE (12:45)
--- NOTE | 2018-08-20 13:20 | Infectious Disease Prog Note ---
Infectious Disease Subjective - Review of Systems Service Date: 08/20/18 Subjective: There is no new change, no fever. Infectious Disease Objective - Results Result Diagrams: 08/20/18 05:15 08/20/18 05:15 Recent Labs: Laboratory Last Values WBC 6.0 Th/cmm (4.8-10.8) 08/20/18 05:15 RBC 4.66 Mil/cmm (3.80-5.20) 08/20/18 05:15 Hgb 13.5 gm/dL (12-16) 08/20/18 05:15 Hct 41.2 % (41.0-60) 08/20/18 05:15 MCV 88.4 fl (81-100) 08/20/18 05:15 MCH 29.0 pg (27.0-31.0) 08/20/18 05:15 MCHC Differential 32.8 pg (28.0-36.0) 08/20/18 05:15 RDW 13.3 % (11.5-20.0) 08/20/18 05:15 Plt Count 245 Th/cmm (150-400) 08/20/18 05:15 MPV 6.8 fl 08/20/18 05:15 Add Manual Diff 08/17/18 13:10 Neutrophils % 59.3 % (40.0-80.0) 08/20/18 05:15 Lymphocytes % 28.3 % (20.0-50.0) 08/20/18 05:15 Monocytes % 9.5 % (2.0-10.0) 08/20/18 05:15 Eosinophils % 2.0 % (0.0-5.0) 08/20/18 05:15 Basophils % 0.9 % (0.0-2.0) 08/20/18 05:15 ESR 35 mm/hr (0-30) H 08/19/18 05:16 Sodium 136 mEq/L (136-145) 08/20/18 05:15 Potassium 3.4 mEq/L (3.5-5.1) L 08/20/18 05:15 Chloride 105 mEq/L (98-107) 08/20/18 05:15 Carbon Dioxide 23.2 mEq/L (21.0-31.0) 08/20/18 05:15 Anion Gap 11.2 (7.0-16.0) 08/20/18 05:15 BUN 6 mg/dL (7-25) L 08/20/18 05:15 Creatinine 0.6 mg/dL (0.6-1.2) 08/20/18 05:15 Est GFR ( Amer) TNP 08/20/18 05:15 Est GFR (Non-Af Amer) TNP 08/20/18 05:15 BUN/Creatinine Ratio 10.0 08/20/18 05:15 Glucose 108 mg/dL (70-105) H 08/20/18 05:15 POC Glucose 108 MG/DL (70 - 105) H 08/17/18 16:03 Calcium 9.1 mg/dL (8.6-10.3) 08/20/18 05:15 Total Bilirubin 0.6 mg/dL (0.3-1.0) 08/18/18 05:30 AST 23 U/L (13-39) 08/18/18 05:30 ALT 20 U/L (7-52) 08/18/18 05:30 Alkaline Phosphatase 70 U/L (34-104) 08/18/18 05:30 Creatine Kinase 177 U/L (30-223) 08/19/18 05:16 C-Reactive Protein < 0.2 mg/dL (0.0-0.9) 08/19/18 05:16 Total Protein 6.6 gm/dL (6.0-8.3) 08/18/18 05:30 Albumin 3.5 gm/dL (3.7-5.3) L 08/18/18 05:30 Globulin 3.1 gm/dL 08/18/18 05:30 Albumin/Globulin Ratio 1.1 (1.0-1.8) 08/18/18 05:30 Triglycerides 154 mg/dL (<150) H 08/18/18 05:30 Cholesterol 166 mg/dL (<200) 08/18/18 05:30 LDL Cholesterol Direct 117 mg/dL (75-193) 08/18/18 05:30 HDL Cholesterol 35 mg/dL (23-92) 08/18/18 05:30 TSH 2.06 uIU/ml (0.34-5.60) 08/18/18 05:30 Urine Source CATH 08/17/18 15:03 Urine Color YELLOW 08/17/18 15:03 Urine Clarity CLOUDY (CLEAR) H 08/17/18 15:03 Urine pH 6.0 (4.6 - 8.0) 08/17/18 15:03 Ur Specific [place] >= 1.030 (1.005-1.030) 08/17/18 15:03 Urine Protein NEGATIVE mg/dL (NEGATIVE) 08/17/18 15:03 Urine Glucose (UA) NEGATIVE mg/dL (NEGATIVE) 08/17/18 15:03 Urine Ketones NEGATIVE mg/dL (NEGATIVE) 08/17/18 15:03 Urine Blood TRACE (NEGATIVE) 08/17/18 15:03 Urine Nitrate POSITIVE (NEGATIVE) H 08/17/18 15:03 Urine Bilirubin NEGATIVE (NEGATIVE) 08/17/18 15:03 Urine Urobilinogen 0.2 E.U./dL (0.2 - 1.0) 08/17/18 15:03 Ur Leukocyte Esterase TRACE (NEGATIVE) H 08/17/18 15:03 Urine RBC 0-2 /hpf (0-5) 08/17/18 15:03 Urine WBC 2-5 /hpf (0-5) 08/17/18 15:03 Ur Epithelial Cells MODERATE /lpf (FEW) 08/17/18 15:03 Urine Bacteria MANY /hpf (NONE SEEN) H 08/17/18 15:03 Coarse Granular Casts 0-2 /lpf (NONE SEEN) H 08/17/18 15:03 - Physical Exam Vitals and I&O: Vital Signs Temp 97.0 F 08/20/18 12:07 Pulse 76 08/20/18 12:07 Resp 18 08/20/18 12:46 BP 116/72 08/20/18 12:07 Pulse Ox 98 08/20/18 12:07 Intake & Output 08/19/18 08/20/18 08/20/18 18:59 06:59 18:59 Intake Total 581.25 921.25 Output Total 4 Balance 581.25 917.25 Weight (lbs) 47.627 kg 47.627 kg Intake: Intake, IV Amount 461.25 921.25 D5-0.45NS 1,000 ml @ 75 461.25 921.25 mls/hr IV .[id number] [facility] Rx #:[id number] Oral 120 Output: Urine 2 Stool 2 Other: # Voids 2 # Bowel Movements 0 Weight Source Bedscale Bedscale Active Medications: Current Medications Atenolol (Tenormin) 25 mg PO DAILY [facility] Stop: 10/18/18 08:59 Last Admin: 08/20/18 08:43 Dose: 25 mg Levofloxacin (Levaquin Pb) 500 mg in 100 mls @ 100 mls/hr IV Q24HR [facility] Stop: 10/16/18 15:59 Last Admin: 08/19/18 18:15 Dose: 100 mls/hr Dextrose/Sodium Chloride (D5-0.45ns) 1,000 mls @ 75 mls/hr IV .[id number] [facility] Stop: 10/16/18 19:59 Last Admin: 08/20/18 00:33 Dose: 75 mls/hr Lorazepam (Ativan) 1 mg PO BID PRN; Protocol PRN Reason: Restlessness Stop: 10/16/18 19:52 Last Admin: 08/19/18 20:16 Dose: 1 mg Losartan Potassium (Cozaar) 25 mg PO DAILY [facility] Stop: 10/17/18 22:59 Last Admin: 08/20/18 08:43 Dose: 25 mg General: no acute distress, well developed, well nourished HEENT: atraumatic, normocephalic, PERRLA, EOMI, moist mucous membrane Neck: supple, no thyromegaly Cardiovascular: S1S2, regular Lungs: clear to auscultation bilaterally, clear to percussion Abdomen: soft, no tender, no distended, no hepatomegaly Extremities: no cyanosis, no clubbing, no edema Neurological: awake, alert, oriented Skin: intact Infectious Disease Assmt/Plan - Assessment Assessment: 1. Urinary tract infection. 2. Failure to thrive. 3. Dementia. 4. Gastroparesis. - Plan Plan: may dc patient on levaquin 250 po daily for 5 days. Nutritional Asmnt/Malnutr-PDOC - Dietary Evaluation Malnutrition Findings (Please click <Entered> for more info): Nutritional Asmnt/Malnutrition Start: 08/18/18 21: 27 Text: Status: Active Freq: Protocol: Document 08/18/18 21:27 [email or web address] (Rec: 08/18/18 21:39 [email or web address] [email or web address]) Nutritional Asmnt/Malnutrition Patient General Information Nutritional Screening Consult Diagnosis ALOC Pertinent Medical Hx/Surgical Hx dementia Subjective Information unable to speak with pt d/t aloc. pt with poor po intakes, per RN. 10-20% food intakes noted per meal/nutrition activity. Current Diet Order/ Nutrition Support Mechanical Soft Patient / S.O Not Indicated Pertinent Medications D5 1/2 NS 75 ml/hr Pertinent Labs Glucose 124 Nutritional Hx/Data Height 1.6 m Height (Calculated Centimeters) 160.0 Current Weight (lbs) 47.627 kg Weight (Calculated Kilograms) 47.6 Weight (Calculated Grams) 64399.2 [place] Body Weight 115 lb % [place] Body Weight 91 Body Mass Index (BMI) 18.6 Weight Status Underweight GI Symptoms GI Symptoms None Difficult in: Chewing Food Allergies No Skin Integrity/Comment: susan 12; skin intact; 08/18 wound care note reviewed. Current %PO Negligible < 25% Estimated Nutritional Goals BEE in Kcals: Using Current wt Calories/Kcals/Kg 30-35 Kcals Calculated 0206-9680 Protein: Using Current wt Protein g/k.3-1.4 Protein Calculated 58-62 Fluid: ml 5059-4036 (1 ml/kcal) Nutritional Problem 1. Problem Problem Inadequate oral intake related to PO intakes meeting < estimated nutritional needs currently and [employer] as evidenced by pt consuming <25% of meals , low BMI for age. Intervention/Recommendation Recommendations by RD Increase Calorie Intake Add supplement feedings Comments suggest add Ensure Enlive TID to support optimal nutrient intake/prevent nutrition related weight loss during admit. Expected Outcomes/Goals Expected Outcomes/Goals PO intakes >50% of meals and/ or PO supplements. Wt maintenance within 2 kg CBW (45 kg) electronically signed by: Jodie Mack, MPH, RDN Clinical Dietitian 08/18/18 9:40 PM FU HR 08/19-08/20
--- NOTE | 2018-08-20 13:31 | GI Progress Note ---
Subjective - Review of Systems Service Date: 08/20/18 Events since last encounter: No new events GI OBJECTIVE - Results Result Diagrams: 08/20/18 05:15 08/20/18 05:15 Recent Labs: Laboratory Last Values WBC 6.0 Th/cmm (4.8-10.8) 08/20/18 05:15 RBC 4.66 Mil/cmm (3.80-5.20) 08/20/18 05:15 Hgb 13.5 gm/dL (12-16) 08/20/18 05:15 Hct 41.2 % (41.0-60) 08/20/18 05:15 MCV 88.4 fl (81-100) 08/20/18 05:15 MCH 29.0 pg (27.0-31.0) 08/20/18 05:15 MCHC Differential 32.8 pg (28.0-36.0) 08/20/18 05:15 RDW 13.3 % (11.5-20.0) 08/20/18 05:15 Plt Count 245 Th/cmm (150-400) 08/20/18 05:15 MPV 6.8 fl 08/20/18 05:15 Add Manual Diff 08/17/18 13:10 Neutrophils % 59.3 % (40.0-80.0) 08/20/18 05:15 Lymphocytes % 28.3 % (20.0-50.0) 08/20/18 05:15 Monocytes % 9.5 % (2.0-10.0) 08/20/18 05:15 Eosinophils % 2.0 % (0.0-5.0) 08/20/18 05:15 Basophils % 0.9 % (0.0-2.0) 08/20/18 05:15 ESR 35 mm/hr (0-30) H 08/19/18 05:16 Sodium 136 mEq/L (136-145) 08/20/18 05:15 Potassium 3.4 mEq/L (3.5-5.1) L 08/20/18 05:15 Chloride 105 mEq/L (98-107) 08/20/18 05:15 Carbon Dioxide 23.2 mEq/L (21.0-31.0) 08/20/18 05:15 Anion Gap 11.2 (7.0-16.0) 08/20/18 05:15 BUN 6 mg/dL (7-25) L 08/20/18 05:15 Creatinine 0.6 mg/dL (0.6-1.2) 08/20/18 05:15 Est GFR ( Amer) TNP 08/20/18 05:15 Est GFR (Non-Af Amer) TNP 08/20/18 05:15 BUN/Creatinine Ratio 10.0 08/20/18 05:15 Glucose 108 mg/dL (70-105) H 08/20/18 05:15 POC Glucose 108 MG/DL (70 - 105) H 08/17/18 16:03 Calcium 9.1 mg/dL (8.6-10.3) 08/20/18 05:15 Total Bilirubin 0.6 mg/dL (0.3-1.0) 08/18/18 05:30 AST 23 U/L (13-39) 08/18/18 05:30 ALT 20 U/L (7-52) 08/18/18 05:30 Alkaline Phosphatase 70 U/L (34-104) 08/18/18 05:30 Creatine Kinase 177 U/L (30-223) 08/19/18 05:16 C-Reactive Protein < 0.2 mg/dL (0.0-0.9) 08/19/18 05:16 Total Protein 6.6 gm/dL (6.0-8.3) 08/18/18 05:30 Albumin 3.5 gm/dL (3.7-5.3) L 08/18/18 05:30 Globulin 3.1 gm/dL 08/18/18 05:30 Albumin/Globulin Ratio 1.1 (1.0-1.8) 08/18/18 05:30 Triglycerides 154 mg/dL (<150) H 08/18/18 05:30 Cholesterol 166 mg/dL (<200) 08/18/18 05:30 LDL Cholesterol Direct 117 mg/dL (75-193) 08/18/18 05:30 HDL Cholesterol 35 mg/dL (23-92) 08/18/18 05:30 TSH 2.06 uIU/ml (0.34-5.60) 08/18/18 05:30 Urine Source CATH 08/17/18 15:03 Urine Color YELLOW 08/17/18 15:03 Urine Clarity CLOUDY (CLEAR) H 08/17/18 15:03 Urine pH 6.0 (4.6 - 8.0) 08/17/18 15:03 Ur Specific [place] >= 1.030 (1.005-1.030) 08/17/18 15:03 Urine Protein NEGATIVE mg/dL (NEGATIVE) 08/17/18 15:03 Urine Glucose (UA) NEGATIVE mg/dL (NEGATIVE) 08/17/18 15:03 Urine Ketones NEGATIVE mg/dL (NEGATIVE) 08/17/18 15:03 Urine Blood TRACE (NEGATIVE) 08/17/18 15:03 Urine Nitrate POSITIVE (NEGATIVE) H 08/17/18 15:03 Urine Bilirubin NEGATIVE (NEGATIVE) 08/17/18 15:03 Urine Urobilinogen 0.2 E.U./dL (0.2 - 1.0) 08/17/18 15:03 Ur Leukocyte Esterase TRACE (NEGATIVE) H 08/17/18 15:03 Urine RBC 0-2 /hpf (0-5) 08/17/18 15:03 Urine WBC 2-5 /hpf (0-5) 08/17/18 15:03 Ur Epithelial Cells MODERATE /lpf (FEW) 08/17/18 15:03 Urine Bacteria MANY /hpf (NONE SEEN) H 08/17/18 15:03 Coarse Granular Casts 0-2 /lpf (NONE SEEN) H 08/17/18 15:03 - Physical Exam Vitals and I&O: Vital Signs Temp 97.0 F 08/20/18 12:07 Pulse 76 08/20/18 12:07 Resp 18 08/20/18 12:46 BP 116/72 08/20/18 12:07 Pulse Ox 98 08/20/18 12:07 Intake & Output 08/19/18 08/20/18 08/20/18 18:59 06:59 18:59 Intake Total 581.25 921.25 Output Total 4 Balance 581.25 917.25 Weight (lbs) 47.627 kg 47.627 kg Intake: Intake, IV Amount 461.25 921.25 D5-0.45NS 1,000 ml @ 75 461.25 921.25 mls/hr IV .[id number] [facility] Rx #:[id number] Oral 120 Output: Urine 2 Stool 2 Other: # Voids 2 # Bowel Movements 0 Weight Source Bedscale Bedscale Active Medications: Current Medications Atenolol (Tenormin) 25 mg PO DAILY [facility] Stop: 10/18/18 08:59 Last Admin: 08/20/18 08:43 Dose: 25 mg Levofloxacin (Levaquin Pb) 500 mg in 100 mls @ 100 mls/hr IV Q24HR [facility] Stop: 10/16/18 15:59 Last Admin: 08/19/18 18:15 Dose: 100 mls/hr Dextrose/Sodium Chloride (D5-0.45ns) 1,000 mls @ 75 mls/hr IV .[id number] [facility] Stop: 10/16/18 19:59 Last Admin: 08/20/18 00:33 Dose: 75 mls/hr Lorazepam (Ativan) 1 mg PO BID PRN; Protocol PRN Reason: Restlessness Stop: 10/16/18 19:52 Last Admin: 08/19/18 20:16 Dose: 1 mg Losartan Potassium (Cozaar) 25 mg PO DAILY [facility] Stop: 10/17/18 22:59 Last Admin: 08/20/18 08:43 Dose: 25 mg HEENT: Atraumatic, PERRLA Neck: Supple Cardiovascular: Regular rate, Normal S1, Normal S2 Abdomen: Bowel sounds, Soft, Tender Assessment/Plan - Assessment Assessment: 1. Poor po intake 2. protein calorie malnutrition 3. Dementia -calorie count -consider PEG if pt is still here in hospital, could possibly perform Thursday -supportive management
--- NOTE | 2018-08-20 14:34 | Internal Medicine Prog Note ---
Internal Medicine Subjective - Subjective Service Date: 08/20/18 Patient seen and examined:: with staff Patient is:: awake, in bed, confused Patient Complaints of:: other (failure to thrive.) Per staff patient has:: no adverse event, no episodes of fall Internal Medicine Objective - Results Result Diagrams: 08/20/18 05:15 08/20/18 05:15 Recent Labs: Laboratory Last Values WBC 6.0 Th/cmm (4.8-10.8) 08/20/18 05:15 RBC 4.66 Mil/cmm (3.80-5.20) 08/20/18 05:15 Hgb 13.5 gm/dL (12-16) 08/20/18 05:15 Hct 41.2 % (41.0-60) 08/20/18 05:15 MCV 88.4 fl (81-100) 08/20/18 05:15 MCH 29.0 pg (27.0-31.0) 08/20/18 05:15 MCHC Differential 32.8 pg (28.0-36.0) 08/20/18 05:15 RDW 13.3 % (11.5-20.0) 08/20/18 05:15 Plt Count 245 Th/cmm (150-400) 08/20/18 05:15 MPV 6.8 fl 08/20/18 05:15 Add Manual Diff 08/17/18 13:10 Neutrophils % 59.3 % (40.0-80.0) 08/20/18 05:15 Lymphocytes % 28.3 % (20.0-50.0) 08/20/18 05:15 Monocytes % 9.5 % (2.0-10.0) 08/20/18 05:15 Eosinophils % 2.0 % (0.0-5.0) 08/20/18 05:15 Basophils % 0.9 % (0.0-2.0) 08/20/18 05:15 ESR 35 mm/hr (0-30) H 08/19/18 05:16 Sodium 136 mEq/L (136-145) 08/20/18 05:15 Potassium 3.4 mEq/L (3.5-5.1) L 08/20/18 05:15 Chloride 105 mEq/L (98-107) 08/20/18 05:15 Carbon Dioxide 23.2 mEq/L (21.0-31.0) 08/20/18 05:15 Anion Gap 11.2 (7.0-16.0) 08/20/18 05:15 BUN 6 mg/dL (7-25) L 08/20/18 05:15 Creatinine 0.6 mg/dL (0.6-1.2) 08/20/18 05:15 Est GFR ( Amer) TNP 08/20/18 05:15 Est GFR (Non-Af Amer) TNP 08/20/18 05:15 BUN/Creatinine Ratio 10.0 08/20/18 05:15 Glucose 108 mg/dL (70-105) H 08/20/18 05:15 POC Glucose 108 MG/DL (70 - 105) H 08/17/18 16:03 Calcium 9.1 mg/dL (8.6-10.3) 08/20/18 05:15 Total Bilirubin 0.6 mg/dL (0.3-1.0) 08/18/18 05:30 AST 23 U/L (13-39) 08/18/18 05:30 ALT 20 U/L (7-52) 08/18/18 05:30 Alkaline Phosphatase 70 U/L (34-104) 08/18/18 05:30 Creatine Kinase 177 U/L (30-223) 08/19/18 05:16 C-Reactive Protein < 0.2 mg/dL (0.0-0.9) 08/19/18 05:16 Total Protein 6.6 gm/dL (6.0-8.3) 08/18/18 05:30 Albumin 3.5 gm/dL (3.7-5.3) L 08/18/18 05:30 Globulin 3.1 gm/dL 08/18/18 05:30 Albumin/Globulin Ratio 1.1 (1.0-1.8) 08/18/18 05:30 Triglycerides 154 mg/dL (<150) H 08/18/18 05:30 Cholesterol 166 mg/dL (<200) 08/18/18 05:30 LDL Cholesterol Direct 117 mg/dL (75-193) 08/18/18 05:30 HDL Cholesterol 35 mg/dL (23-92) 08/18/18 05:30 TSH 2.06 uIU/ml (0.34-5.60) 08/18/18 05:30 Urine Source CATH 08/17/18 15:03 Urine Color YELLOW 08/17/18 15:03 Urine Clarity CLOUDY (CLEAR) H 08/17/18 15:03 Urine pH 6.0 (4.6 - 8.0) 08/17/18 15:03 Ur Specific [place] >= 1.030 (1.005-1.030) 08/17/18 15:03 Urine Protein NEGATIVE mg/dL (NEGATIVE) 08/17/18 15:03 Urine Glucose (UA) NEGATIVE mg/dL (NEGATIVE) 08/17/18 15:03 Urine Ketones NEGATIVE mg/dL (NEGATIVE) 08/17/18 15:03 Urine Blood TRACE (NEGATIVE) 08/17/18 15:03 Urine Nitrate POSITIVE (NEGATIVE) H 08/17/18 15:03 Urine Bilirubin NEGATIVE (NEGATIVE) 08/17/18 15:03 Urine Urobilinogen 0.2 E.U./dL (0.2 - 1.0) 08/17/18 15:03 Ur Leukocyte Esterase TRACE (NEGATIVE) H 08/17/18 15:03 Urine RBC 0-2 /hpf (0-5) 08/17/18 15:03 Urine WBC 2-5 /hpf (0-5) 08/17/18 15:03 Ur Epithelial Cells MODERATE /lpf (FEW) 08/17/18 15:03 Urine Bacteria MANY /hpf (NONE SEEN) H 08/17/18 15:03 Coarse Granular Casts 0-2 /lpf (NONE SEEN) H 08/17/18 15:03 - Physical Exam Vitals and I&O: Vital Signs Temp 97.0 F 08/20/18 12:07 Pulse 76 08/20/18 12:07 Resp 18 08/20/18 12:46 BP 116/72 08/20/18 12:07 Pulse Ox 98 08/20/18 12:07 Intake & Output 08/19/18 08/20/18 08/20/18 18:59 06:59 18:59 Intake Total 581.25 921.25 Output Total 4 Balance 581.25 917.25 Weight (lbs) 47.627 kg 47.627 kg Intake: Intake, IV Amount 461.25 921.25 D5-0.45NS 1,000 ml @ 75 461.25 921.25 mls/hr IV .[id number] [facility] Rx #:[id number] Oral 120 Output: Urine 2 Stool 2 Other: # Voids 2 # Bowel Movements 0 Weight Source Bedscale Bedscale Active Medications: Current Medications Atenolol (Tenormin) 25 mg PO DAILY [facility] Stop: 10/18/18 08:59 Last Admin: 08/20/18 08:43 Dose: 25 mg Levofloxacin (Levaquin Pb) 500 mg in 100 mls @ 100 mls/hr IV Q24HR [facility] Stop: 10/16/18 15:59 Last Admin: 08/19/18 18:15 Dose: 100 mls/hr Dextrose/Sodium Chloride (D5-0.45ns) 1,000 mls @ 75 mls/hr IV .[id number] [facility] Stop: 10/16/18 19:59 Last Admin: 08/20/18 00:33 Dose: 75 mls/hr Lorazepam (Ativan) 1 mg PO BID PRN; Protocol PRN Reason: Restlessness Stop: 10/16/18 19:52 Last Admin: 08/19/18 20:16 Dose: 1 mg Losartan Potassium (Cozaar) 25 mg PO DAILY [facility] Stop: 10/17/18 22:59 Last Admin: 08/20/18 08:43 Dose: 25 mg Physical Exam: 88 y/o female patient admitted for worsening clinical status and failure to thrive. Patient was diagnosed with Failure to thrive,UTI, Gastroparesis and hx of Dementia. General: weak, demented HEENT: NC/AT, PERRLA Neck: Supple Lungs: CTAB Cardiovascular: RRR, Normal S1 Abdomen: soft, non-tender Extremities: clear Neurological: no change Internal Medicine Assmt/Plan - Assessment Assessment: Uti. Dementia. Gastroparesis. Failure to thrive. Poor oral intake. Protein calorie nutrition. - Plan Plan: Continuation of care. Followup with GI. Monitor Labs. Continue present meds as directed. Monitor Diet/Nutritional support. Psych management per Psych. Pain Management. Fall precaution, frequent nursing rounds, and as needed restraints to prevent fall. Safety precaution. Supportive care. Continue collaborating with consulting specialists, case management and nursing team. Will Monitor patient and continue present care management. Nutritional Asmnt/Malnutr-PDOC - Dietary Evaluation Malnutrition Findings (Please click <Entered> for more info): Nutritional Asmnt/Malnutrition Start: 08/18/18 21: 27 Text: Status: Active Freq: Protocol: Document 08/18/18 21:27 [email or web address] (Rec: 08/18/18 21:39 [email or web address]) Nutritional Asmnt/Malnutrition Patient General Information Nutritional Screening Consult Diagnosis ALOC Pertinent Medical Hx/Surgical Hx dementia Subjective Information unable to speak with pt d/t aloc. pt with poor po intakes, per RN. 10-20% food intakes noted per meal/nutrition activity. Current Diet Order/ Nutrition Support Mechanical Soft Patient / S.O Not Indicated Pertinent Medications D5 1/2 NS 75 ml/hr Pertinent Labs Glucose 124 Nutritional Hx/Data Height 1.6 m Height (Calculated Centimeters) 160.0 Current Weight (lbs) 47.627 kg Weight (Calculated Kilograms) 47.6 Weight (Calculated Grams) 88668.2 Citra Body Weight 115 lb % Citra Body Weight 91 Body Mass Index (BMI) 18.6 Weight Status Underweight GI Symptoms GI Symptoms None Difficult in: Chewing Food Allergies No Skin Integrity/Comment: susan 12; skin intact; 08/18 wound care note reviewed. Current %PO Negligible < 25% Estimated Nutritional Goals BEE in Kcals: Using Current wt Calories/Kcals/Kg 30-35 Kcals Calculated 7716-3345 Protein: Using Current wt Protein g/k.3-1.4 Protein Calculated 58-62 Fluid: ml 0801-6660 (1 ml/kcal) Nutritional Problem 1. 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 Intervention/Recommendation Recommendations by RD Increase Calorie Intake Add supplement feedings Comments suggest add Ensure Enlive TID to support optimal nutrient intake/prevent nutrition related weight loss during admit. Expected Outcomes/Goals Expected Outcomes/Goals PO intakes >50% of meals and/ or PO supplements. Wt maintenance within 2 kg CBW (45 kg) electronically signed by: Jodie Mack, MPH, RDN Clinical Dietitian 08/18/18 9:40 PM FU HR 08/19-08/20
[2018-08-21 15:05] LABS: FOLIC ACID >20.0 ng/mL (>3.0)
--- NOTE | 2018-08-24 20:13 | Discharge Summary ---
DATE OF DISCHARGE: HOSPITAL COURSE: The patient was admitted on 08/17/2018 and the patient was discharged on 08/20/2018. This patient was admitted because of poor oral intake, failure to thrive and history of dementia. The patient completed the workup including GI workup and the patient improved somewhat and able to eat. FINAL DIAGNOSES: Failure to thrive improving, malnutrition, dementia, ____. The patient was sent ____ where I will follow the patient. MEDICATIONS: See the reconciliation sheet. ACTIVITY: As tolerated. DIET: Per the order sheet. JOB# [id number]
== END 2018-08-20 14:43 | DRG 70 ==
LOC: ER 12:01 → TELE 15:33
PROVIDERS: ADMIT Internal Medicine; ATTEND Internal Medicine
DX: G93.41 Metabolic encephalopathy (principal); E41 Nutritional marasmus; N39.0 Urinary tract infection, site not specified; Z68.1 Body mass index [BMI] 19.9 or less, adult; G93.40 Encephalopathy, unspecified; R62.7 Adult failure to thrive; K31.84 Gastroparesis; F03.90 Unspecified dementia, unspecified severity, without behavioral disturbance, psychotic disturbance, mood disturbance, and anxiety; Z88.7 Allergy status to serum and vaccine; Z88.8 Allergy status to other drugs, medicaments and biological substances
CPT/HCPCS: 36415-UA; 70450-TC; 80048-TC; 80053-TC; 80061-TC; 81001-TC; 82085-90; 82550-TC; 82607-90; 82746-90; 82948-90; 84443-TC; 85007-TC; 85025-TC; 85652-TC; 86141-TC; 87086-90; J1956; J7040

== ENCOUNTER 2018-10-20 19:08 | Inpatient (IN) | payer MEDICARE, OTHER ==
--- NOTE | 2018-10-20 19:23 | ED Physician Chart ---
ED Chief Complaint/HPI - Patient Information Date Seen:: 10/20/18 Time Seen:: 19:17 Chief Complaint:: dizziness weakness History of Present Illness:: 88 yr old female demarcus speaking mainly here for weakness dizziness pt has DR GONZALEZ WHO CALLED JUST PRIOR Allergies:: Allergies Allergy/AdvReac Type Severity Reaction Status Date / Time atropine Allergy Verified 08/17/18 12:07 tetanus toxoid, adsorbed Allergy Verified 08/17/18 12:07 ED Review of Systems - Review of Systems General/Constitutional: No fever, No chills, No weight loss, No weakness, No diaphoresis, No edema, No loss of appetite Skin: No skin lesions, No rash, No bruising Head: No headache, No light-headedness Eyes: No loss of vision, No pain, No diplopia ENT: No earache, No nasal drainage, No sore throat, No tinnitus Neck: No neck pain, No swelling, No thyromegaly, No stiffness, No mass noted Cardio Vascular: No chest pain, No palpitations, No PND, No orthopnea, No edema Pulmonary: No SOB, No cough, No sputum, No wheezing GI: No nausea, No vomiting, No diarrhea, No pain, No melena, No hematochezia, No constipation, No hematemesis G/U: No dysuria, No frequency, No hematuria Musculoskeletal: No bone or joint pain, No back pain, No muscle pain Endocrine: No polyuria, No polydipsia Psychiatric: Depression Hematopoietic: No bruising, No lymphadenopathy Allergic/Immuno: No urticaria, No angioedema Neurological: Weakness, Dizziness ED Past Medical History - Past Medical History Past Medical History: HTN, CAD, Dementia (ENCEPHALOPATHY UTI DYSPHAGIA FAILURE TO THRIVE), Other (SEE NURSES NOTES) Family Medical History - Family Member Mother History Unknown: Yes Ethnicity: Unknown Living Status: Unknown ED Physical Exam - Physical Examination General/Constitutional: Awake, Well-developed, well-nourished, Alert, No distress, GCS 15, Non-toxic appearing, Ambulatory Head: Atraumatic Eyes: Lids, conjuctiva normal, PERRL, EOMI Skin: Nl inspection, No rash, No skin lesions, No ecchymosis, Well hydrated, No lymphadenopathy ENMT: External ears, nose nl, Nasal exam nl, Lips, teeth, gums nl Neck: Nontender, Full ROM w/o pain, No JVD, No nuchal rigidity, No bruit, No mass, No stridor Respiratory: Nl effort/Exclusion, Clear to Auscultation, No Wheeze/Rhonchi/Rales Cardio Vascular: RRR, No murmur, gallop, rubs, NL S1 S2 GI: No tenderness/rebounding/guarding, No organomegaly, No hernia, Normal BS's, Nondistended, No mass/bruits, No McBurney tenderness : No CVA tenderness Extremities: No tenderness or effusion, Normal digits & nails 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 Is Septic Shock (SBP<90, OR Lactate>4 mmol\L) present?: No ED Reassessment (Disposition) - Reassessment Reassessment:: WEAKNESS DIZZINESS - Diagnosis Diagnosis:: ABOVE - Patient Disposition Discharge/Transfer:: Acute Care w/in this hosp Admitted to:: Med/Surg Condition at Disposition:: Stable
[2018-10-20 20:06] LABS: % BASOPHILS 0.8 % (0.0-2.0); % EOSINOPHILS 1.8 % (0.0-5.0); % LYMPHOCYTES 29.6 % (20.0-50.0); % MONOCYTES 10.9 % (2.0-10.0); % NEUTROPHILS 56.9 % (40.0-80.0); EOSINOPHILE ABSOLUTE 0.1 Th/cmm (0.1-0.4); HEMATOCRIT 41.1 % (41.0-60); HEMOGLOBIN 13.6 gm/dL (12-16); LYMPHOCYTE ABSOLUTE 1.6 Th/cmm (1.5-3.0); MEAN CELL VOLUME 89.8 fl (81-100); MEAN CORPUSCULAR HEMOGLOBIN 29.6 pg (27.0-31.0); MONOCYTE ABSOLUTE 0.6 Th/cmm (0.3-1.0); NEUTROPHILE ABSOLUTE 3.1 Th/cmm (1.8-8.0); PLATELET COUNT 308 Th/cmm (150-400); RED BLOOD COUNT 4.58 Mil/cmm (3.80-5.20); RED CELL DISTRIBUTION WIDTH 14.5 % (11.5-20.0); WHITE BLOOD COUNT 5.4 Th/cmm (4.8-10.8)
[2018-10-20 20:54] LABS: ALB/GLOB RATIO 1.4 (1.0-1.8); ALBUMIN 3.7 gm/dL (3.7-5.3); ALKALINE PHOSPHATASE 51 U/L (34-104); ANION GAP 11.8 (7.0-16.0); BILIRUBIN,TOTAL 0.4 mg/dL (0.3-1.0); BUN - UREA NITROGEN 19 mg/dL (7-25); CALCIUM SERUM 9.6 mg/dL (8.6-10.3); CARBON DIOXIDE 26.1 mEq/L (21.0-31.0); CHLORIDE 105 mEq/L (98-107); CREATININE - SERUM 0.8 mg/dL (0.6-1.2); GLUCOSE 97 mg/dL (70-105); POTASSIUM SERUM 3.9 mEq/L (3.5-5.1); SGOT 12 U/L (13-39); SGPT/ALT 11 U/L (7-52); SODIUM SERUM 139 mEq/L (136-145); TOTAL PROTEIN,SERUM 6.4 gm/dL (6.0-8.3)
[2018-10-20 21:55] LABS: URINE SOURCE CLEAN C
[2018-10-20 22:01] LABS: URINE BILIRUBIN NEGATIVE (NEGATIVE); URINE BLOOD NEGATIVE (NEGATIVE); URINE GLUCOSE (UA) 100 mg/dL (NEGATIVE); URINE KETONE NEGATIVE (NEGATIVE); URINE LEUKOCYTE ESTERASE NEGATIVE (NEGATIVE); URINE NITRATE NEGATIVE (NEGATIVE); URINE PH 5.5 (4.6 - 8.0); URINE PROTEIN NEGATIVE (NEGATIVE); URINE UROBILINOGEN 0.2 E.U./dL (0.2 - 1.0)
[2018-10-20 22:07] LABS: URINE CLARITY CLEAR (CLEAR); URINE COLOR YELLOW; URINE MICROSCOPIC INDICATED? YES
[2018-10-20 22:09] LABS: URINE BACTERIA 1+ /hpf (NONE SEEN); URINE EPITHELIAL CELLS MODERATE /lpf (FEW); URINE WBC 0-2 /hpf (0-5)
[2018-10-20 23:14] VITALS: BP 144/64
[2018-10-21 06:58] LABS: % BASOPHILS 0.6 % (0.0-2.0); % LYMPHOCYTES 26.4 % (20.0-50.0); % MONOCYTES 8.5 % (2.0-10.0); % NEUTROPHILS 62.5 % (40.0-80.0); EOSINOPHILE ABSOLUTE 0.1 Th/cmm (0.1-0.4); HEMATOCRIT 40.8 % (41.0-60); HEMOGLOBIN 13.6 gm/dL (12-16); LYMPHOCYTE ABSOLUTE 1.6 Th/cmm (1.5-3.0); MEAN CELL VOLUME 89.8 fl (81-100); MEAN CORPUSCULAR HEMOGLOBIN 29.8 pg (27.0-31.0); MEAN CORPUSCULAR HGB CONC 33.2 pg (28.0-36.0); MONOCYTE ABSOLUTE 0.5 Th/cmm (0.3-1.0); NEUTROPHILE ABSOLUTE 3.9 Th/cmm (1.8-8.0); RED BLOOD COUNT 4.55 Mil/cmm (3.80-5.20); RED CELL DISTRIBUTION WIDTH 14.5 % (11.5-20.0); WHITE BLOOD COUNT 6.1 Th/cmm (4.8-10.8)
[2018-10-21 07:00] LABS: PLATELET COUNT 176 Th/cmm (150-400)
--- NOTE | 2018-10-21 08:21 | Consultation ---
DATE OF CONSULTATION: 10/21/2018 REQUESTING PHYSICIAN: Dr. Weinstein. REASON FOR CONSULTATION: Weakness, failure to thrive. Thank you for asking me to see this patient in consultation. HISTORY OF PRESENT ILLNESS: This is an 88-year-old female with history of dementia, CAD, history of multiple UTIs, who presents for weakness as well as dizziness and poor p.o. intake. The patient apparently was dropped off by her niece for further evaluation. The patient has been admitted and GI consultation has been obtained to assist with the patient's care. PAST MEDICAL HISTORY: Recurrent UTIs, dementia, failure to thrive. FAMILY HISTORY: Noncontributory for GI disease. MEDICATIONS: Have been reviewed. SOCIAL HISTORY: No tobacco, alcohol or drugs. PHYSICAL EXAMINATION: VITAL SIGNS: Temperature 97.8, pulse of 60, respiratory rate of 18, blood pressure is 144/64. GENERAL: In no acute distress. HEENT: Normocephalic, atraumatic. PERRLA positive. LUNGS: Clear bilaterally. No wheezes, rales or rhonchi. HEART: Regular rate and rhythm, normal S1, S2. ABDOMEN: Soft, nontender. Bowel sounds are positive. EXTREMITIES: Show no lower extremity edema. PSYCHOLOGICAL: Alert and oriented x 3. NEUROLOGIC: Grossly intact. LABORATORY DATA: White count of 6.1, hemoglobin 13.6, platelet count 176,000. IMAGING: None relevant. ASSESSMENT AND PLAN: This is an 88-year-old female with dementia, coronary artery disease, advanced age, who presents for weakness, failure to thrive. 1. Poor p.o. intake. 2. Failure to thrive. 3. Weakness. 4. Advanced age and dementia. RECOMMENDATIONS: 1. Encouraged nursing staff to work with the patient on p.o. intake and assess how much percentage of her meals she is eating. She does appear potentially depressed as well. We will defer any treatment necessary to the primary team. 2. Consider calorie count to get a sense of how much the patient is able to eat. If she is having any problems such as dysphagia, would recommend an EGD. If she is not able to tolerate any meals, we can consider placing a PEG tube; however, at this time, this is premature. Continue with supportive care management per primary team. We will continue to follow alongside with you. Thank you for this consultation. JOB# [id number]
[2018-10-21 08:47] LABS: ALB/GLOB RATIO 1.4 (1.0-1.8); ALBUMIN 3.5 gm/dL (3.7-5.3); ALKALINE PHOSPHATASE 53 U/L (34-104); ANION GAP 16.2 (7.0-16.0); BILIRUBIN,TOTAL 0.7 mg/dL (0.3-1.0); BUN - UREA NITROGEN 17 mg/dL (7-25); CALCIUM SERUM 9.4 mg/dL (8.6-10.3); CARBON DIOXIDE 20.9 mEq/L (21.0-31.0); CHLORIDE 103 mEq/L (98-107); CHOLESTEROL 203 mg/dL (<200); CREATININE - SERUM 0.6 mg/dL (0.6-1.2); GLUCOSE 92 mg/dL (70-105); HDL -HIGH DENSITY LIPOPROTEIN 44 mg/dL (23-92); POTASSIUM SERUM 4.1 mEq/L (3.5-5.1); SGOT 17 U/L (13-39); SGPT/ALT 10 U/L (7-52); SODIUM SERUM 136 mEq/L (136-145); TOTAL PROTEIN,SERUM 6.1 gm/dL (6.0-8.3); TRIGLYCERIDES 192 mg/dL (<150)
[2018-10-21] MEDS ORDERED: Non-Formulary Item 1 EA (Acetaminophen [Pain Reliever] 650 MG) PO PRN (09:01)
--- NOTE | 2018-10-21 18:14 | History & Physical ---
ADMIT DATE: 10/21/2018 CHIEF COMPLAINT: Weakness. HISTORY OF PRESENT ILLNESS: This is an 88-year-old female who is a group home resident of [facility] who is admitted here to the Med/Surg unit due to increasing weakness. PAST MEDICAL HISTORY: Hypertension, CAD, dementia, encephalopathy, dysphagia, recurrent UTIs. FAMILY HISTORY: Noncontributory. SOCIAL HISTORY: The patient is a group home resident. REVIEW OF SYSTEMS: Unable to obtain, the patient is confused. PHYSICAL EXAMINATION: GENERAL: Elderly female, awake, alert, confused, in no apparent distress. VITAL SIGNS: Temperature 98.2, heart rate 62, blood pressure 122/67, respiration 18, O2 of 98%. HEENT: Head; normocephalic, atraumatic. NECK: Supple. No mass. LUNGS: Clear bilaterally. HEART: Regular rate and rhythm. ABDOMEN: Soft, nontender. LABORATORY DATA: WBC 6.1, H and H 13.6 and 40.8, platelet of 176. Sodium 136, potassium 4.1, chloride 103, BUN 17, creatinine 0.6. The patient had a urinalysis done, positive for UTI. ASSESSMENT: Acute urinary tract infection, generalized weakness, moderate protein-calorie malnutrition, dementia, hypertension, history of coronary artery disease, dysphagia. PLAN: The patient to be admitted to the Med/Surg unit. We will get Neurology on the case as well as GI as well as Cardiology. We will continue the patient's home medications. We will treat the patient with IV antibiotics for UTI. We will continue to monitor this patient. [facility]# [id number]
[2018-10-21] MEDS: cefTRIAXone 1 GM in Sodium Chloride 0.9% 50 ML IV SCH (20:14)
[2018-10-22 07:02] LABS: % BASOPHILS 1.1 % (0.0-2.0); % EOSINOPHILS 1.2 % (0.0-5.0); % LYMPHOCYTES 28.8 % (20.0-50.0); % MONOCYTES 9.4 % (2.0-10.0); % NEUTROPHILS 59.5 % (40.0-80.0); BASOPHILE ABSOLUTE 0.1 Th/cumm (0-0.2); EOSINOPHILE ABSOLUTE 0.1 Th/cmm (0.1-0.4); HEMATOCRIT 42.6 % (41.0-60); HEMOGLOBIN 14.1 gm/dL (12-16); LYMPHOCYTE ABSOLUTE 1.7 Th/cmm (1.5-3.0); MEAN CELL VOLUME 90.4 fl (81-100); MEAN CORPUSCULAR HEMOGLOBIN 29.8 pg (27.0-31.0); MEAN CORPUSCULAR HGB CONC 32.9 pg (28.0-36.0); MONOCYTE ABSOLUTE 0.6 Th/cmm (0.3-1.0); NEUTROPHILE ABSOLUTE 3.4 Th/cmm (1.8-8.0); PLATELET COUNT 328 Th/cmm (150-400); RED BLOOD COUNT 4.72 Mil/cmm (3.80-5.20); RED CELL DISTRIBUTION WIDTH 14.4 % (11.5-20.0); WHITE BLOOD COUNT 5.9 Th/cmm (4.8-10.8)
[2018-10-22 07:27] LABS: ANION GAP 11.1 (7.0-16.0); BUN - UREA NITROGEN 14 mg/dL (7-25); CALCIUM SERUM 9.3 mg/dL (8.6-10.3); CARBON DIOXIDE 25.6 mEq/L (21.0-31.0); CHLORIDE 103 mEq/L (98-107); CREATININE - SERUM 0.6 mg/dL (0.6-1.2); GLUCOSE 109 mg/dL (70-105); POTASSIUM SERUM 3.7 mEq/L (3.5-5.1); SODIUM SERUM 136 mEq/L (136-145)
[2018-10-22] MEDS ORDERED: Probiotic Screen MC PRN (13:52)
--- NOTE | 2018-10-22 14:18 | Internal Medicine Prog Note ---
Internal Medicine Subjective - Subjective Service Date: 10/22/18 Patient seen and examined:: with staff Patient is:: awake, verbal, confused Patient Complaints of:: other (weakness.) Per staff patient has:: no adverse event, no episodes of fall Internal Medicine Objective - Results Result Diagrams: 10/22/18 06:34 10/22/18 06:34 Recent Labs: Laboratory Last Values WBC 5.9 Th/cmm (4.8-10.8) 10/22/18 06:34 RBC 4.72 Mil/cmm (3.80-5.20) 10/22/18 06:34 Hgb 14.1 gm/dL (12-16) 10/22/18 06:34 Hct 42.6 % (41.0-60) 10/22/18 06:34 MCV 90.4 fl (81-100) 10/22/18 06:34 MCH 29.8 pg (27.0-31.0) 10/22/18 06:34 MCHC Differential 32.9 pg (28.0-36.0) 10/22/18 06:34 RDW 14.4 % (11.5-20.0) 10/22/18 06:34 Plt Count 328 Th/cmm (150-400) 10/22/18 06:34 MPV 6.5 fl 10/22/18 06:34 Neutrophils % 59.5 % (40.0-80.0) 10/22/18 06:34 Lymphocytes % 28.8 % (20.0-50.0) 10/22/18 06:34 Monocytes % 9.4 % (2.0-10.0) 10/22/18 06:34 Eosinophils % 1.2 % (0.0-5.0) 10/22/18 06:34 Basophils % 1.1 % (0.0-2.0) 10/22/18 06:34 Sodium 136 mEq/L (136-145) 10/22/18 06:34 Potassium 3.7 mEq/L (3.5-5.1) 10/22/18 06:34 Chloride 103 mEq/L (98-107) 10/22/18 06:34 Carbon Dioxide 25.6 mEq/L (21.0-31.0) 10/22/18 06:34 Anion Gap 11.1 (7.0-16.0) 10/22/18 06:34 BUN 14 mg/dL (7-25) 10/22/18 06:34 Creatinine 0.6 mg/dL (0.6-1.2) 10/22/18 06:34 Est GFR ( Amer) TNP 10/22/18 06:34 Est GFR (Non-Af Amer) TNP 10/22/18 06:34 BUN/Creatinine Ratio 23.3 10/22/18 06:34 Glucose 109 mg/dL (70-105) H 10/22/18 06:34 Whole Bld Lactic Acid 0.86 mmol/L (0.60-1.99) 10/20/18 19:35 Calcium 9.3 mg/dL (8.6-10.3) 10/22/18 06:34 Total Bilirubin 0.7 mg/dL (0.3-1.0) 10/21/18 05:45 AST 17 U/L (13-39) 10/21/18 05:45 ALT 10 U/L (7-52) 10/21/18 05:45 Alkaline Phosphatase 53 U/L (34-104) 10/21/18 05:45 Troponin I 0.01 ng/mL (0.01-0.05) 10/20/18 19:35 Total Protein 6.1 gm/dL (6.0-8.3) 10/21/18 05:45 Albumin 3.5 gm/dL (3.7-5.3) L 10/21/18 05:45 Globulin 2.6 gm/dL 10/21/18 05:45 Albumin/Globulin Ratio 1.4 (1.0-1.8) 10/21/18 05:45 Triglycerides 192 mg/dL (<150) H 10/21/18 05:45 Cholesterol 203 mg/dL (<200) H 10/21/18 05:45 LDL Cholesterol Direct 146 mg/dL (75-193) 10/21/18 05:45 HDL Cholesterol 44 mg/dL (23-92) 10/21/18 05:45 TSH 1.40 uIU/ml (0.34-5.60) 10/21/18 05:45 Urine Source CLEAN C 10/20/18 21:20 Urine Color YELLOW 10/20/18 21:20 Urine Clarity CLEAR (CLEAR) 10/20/18 21:20 Urine pH 5.5 (4.6 - 8.0) 10/20/18 21:20 Ur Specific [place] 1.025 (1.005-1.030) 10/20/18 21:20 Urine Protein NEGATIVE mg/dL (NEGATIVE) 10/20/18 21:20 Urine Glucose (UA) 100 mg/dL (NEGATIVE) H 10/20/18 21:20 Urine Ketones NEGATIVE mg/dL (NEGATIVE) 10/20/18 21:20 Urine Blood NEGATIVE (NEGATIVE) 10/20/18 21:20 Urine Nitrate NEGATIVE (NEGATIVE) 10/20/18 21:20 Urine Bilirubin NEGATIVE (NEGATIVE) 10/20/18 21:20 Urine Urobilinogen 0.2 E.U./dL (0.2 - 1.0) 10/20/18 21:20 Ur Leukocyte Esterase NEGATIVE (NEGATIVE) 10/20/18 21:20 Urine RBC 2-5 /hpf (0-5) 10/20/18 21:20 Urine WBC 0-2 /hpf (0-5) 10/20/18 21:20 Ur Epithelial Cells MODERATE /lpf (FEW) 10/20/18 21:20 Urine Bacteria 1+ /hpf (NONE SEEN) H 10/20/18 21:20 - Physical Exam Vitals and I&O: Vital Signs Temp 96.9 F 10/22/18 12:00 Pulse 76 10/22/18 12:00 Resp 17 10/22/18 12:00 BP 95/62 10/22/18 12:00 Pulse Ox 98 10/22/18 12:00 Intake & Output 10/21/18 10/22/18 10/22/18 18:59 06:59 18:59 Intake Total 615 110 Balance 615 110 Weight (lbs) 49.895 kg 49.895 kg Intake: Intake, IV Amount 50 cefTRIAXone 1 gm In 50 Sodium Chloride 0.9% 50 ml @ 100 mls/hr IV Q24HR [facility] Rx#:[id number] Oral 615 60 Other: # Voids 4 3 # Bowel Movements 1 Weight Source Bedscale Bedscale Active Medications: Current Medications Acetaminophen (Tylenol) 650 mg PO Q6H PRN PRN Reason: PAIN Stop: 12/20/18 09:10 Atenolol (Tenormin) 25 mg PO DAILY [facility] Stop: 12/21/18 08:59 Last Admin: 10/22/18 08:48 Dose: Not Given Cholecalciferol (Vitamin D3) 5,000 iu PO DAILY [facility] Stop: 12/21/18 08:59 Last Admin: 10/22/18 08:46 Dose: 5,000 iu Docusate Sodium (Colace) 100 mg PO HS [facility] Stop: 12/20/18 20:59 Last Admin: 10/21/18 20:14 Dose: 100 mg Ceftriaxone Sodium 1 gm/ (Sodium Chloride) 50 mls @ 100 mls/hr IV Q24HR [facility] Stop: 10/27/18 20:29 Last Infusion: 10/21/18 20:44 Dose: Infused Lactobacillus Rhamnosus (Culturelle 15b) 1 each PO DAILY [facility] Stop: 12/21/18 16:59 Miscellaneous (Probiotic Screen) 1 ea MC PRN PRN PRN Reason: PROTOCOL Stop: 12/21/18 13:51 Physical Exam: Patient is very weak and confused. General: weak, demented HEENT: NC/AT Neck: Supple, No JVD Lungs: CTAB Cardiovascular: RRR, Normal S1 Abdomen: soft, non-tender Extremities: clear Neurological: no change Internal Medicine Assmt/Plan - Assessment Assessment: UTI. Moderate protein-calore malnutrition. Increased Generalized weakness. Hypertension. History of CAD. Dementia. Encephalopathy. Dysphagia. - Plan Plan: Continuation of care. Monitor Labs. Continue present meds as directed. Monitor vitals, Continue BP meds as directed. Accu-check daily, Continue DM meds as directed. Monitor Diet/Nutritional support. Monitor mental status progression. Monitor behavioral health status. Pain Management. Physical therapy/Occupational therapy. Fall precaution, frequent nursing rounds, and as needed restraints to prevent fall. Safety precaution. Supportive care. Continue collaborating with consulting specialists, case management and nursing team. Will Monitor patient and continue present care management. Nutritional Asmnt/Malnutr-PDOC - Dietary Evaluation Malnutrition Findings (Please click <Entered> for more info): Nutritional Asmnt/Malnutrition Start: 10/21/18 09: 36 Text: Status: Complete Freq: Protocol: Document 10/21/18 09:37 MARIANGEL (Rec: 10/21/18 09:41 [email or web address] [email or web address]) Nutritional Asmnt/Malnutrition Patient General Information Nutritional Screening High Risk Diagnosis Failure to thrive Pertinent Medical Hx/Surgical Hx HTN, CAD, Dementia, Encephalopathy, dysphagia, multiple UTIs, FTT Subjective Information Pt is a 88-year-old female admitted on 10/20 c/o dizziness and weakness. Pt has noted appetite change, poor PO intake. Per Consultation (10/20 ), nursing staff is to encourage and monitor PO intake. Calorie count will be considered to assess how much the Pt is eating. If Pt is unable to tolerate meals PEG placement will be considered. Pt is AAOx2, only alert to herself. Spoke with RNAnnabelle, Pt ate about 20% of breakfast . Provided RN with an Ensure Enlive to offer when Pt wakes up before lunch. Adding Ensure Enlive between meals to encourage improved nutrition intake. HT: 53 WT: 105 LB (47.73 kg) BMI: 18.60 (Normal) GI: hypoactive, flat, soft, non-tender BM: Not noted Skin: WNL, warm, dry, elastic, intact Magnus: 16 Diet Order: Mechanical Soft Estimated Energy Needs: ( Geriatric, CBW) 7794-5270 kcals (25-30 kcals/ kg) 47-57g Pro (1.0-1.2 g/kg) 0573-1412 ml (25-30 ml/kg) Current Diet Order/ Nutrition Support Mechanical Soft Patient / S.O Can't verbalize diet edu Pertinent Medications No active medications to note Pertinent Labs 10/21: Hgb/Hct 13.6/40.8, AST 12 Nutritional Hx/Data Height 1.6 m Height (Calculated Centimeters) 160.0 Current Weight (lbs) 47.627 kg Weight (Calculated Kilograms) 47.6 Weight (Calculated Grams) 82789.2 [facility] Body Weight 115 LB (52.27 kg) % [facility] Body Weight 91 Body Mass Index (BMI) 18.6 Weight Status Approriate GI Symptoms GI Symptoms None Last BM Not noted Skin Integrity/Comment: Skin: WNL, warm, dry, elastic, intact Magnus: 16 Current %PO Negligible < 25% Estimated Nutritional Goals BEE in Kcals: Using Current wt Calories/Kcals/Kg 25-30 Kcals Calculated 6351-3099 Protein: Using Current wt Protein g/k.0-1.2 Protein Calculated 47-57 Fluid: ml 4561-4758 ml (25-30 ml/kg) Nutritional Problem 1. Problem Problem Inadequate energy intake Etiology r/t possible poor appetite/ depression Signs/Symptoms: aeb RN sated Pt ate 20% breakfast and Dx FTT with poor PO intake. Intervention/Recommendation Comments 1. Continue with mechanical soft diet as ordered. 2. Nursing staff to continue improved PO intake encouragement per MD order. 3. Add Ensure Enlive between meals (completed). Expected Outcomes/Goals Expected Outcomes/Goals 1. PO intake to meet 75% of nutritional needs. 2. Monitor PO intake, wt, nutrition related labs, and skin integrity. 3. F/U as high risk in 2-3 days, 10/23-10/24
[2018-10-22] MEDS: Lactobacillus Rhamnosus GG 15 Billion CFU CAP.SPRINK PO SCH (17:42)
--- NOTE | 2018-10-22 18:11 | GI Progress Note ---
Subjective - Review of Systems Service Date: 10/22/18 Events since last encounter: no new events GI OBJECTIVE - Results Result Diagrams: 10/22/18 06:34 10/22/18 06:34 Recent Labs: Laboratory Last Values WBC 5.9 Th/cmm (4.8-10.8) 10/22/18 06:34 RBC 4.72 Mil/cmm (3.80-5.20) 10/22/18 06:34 Hgb 14.1 gm/dL (12-16) 10/22/18 06:34 Hct 42.6 % (41.0-60) 10/22/18 06:34 MCV 90.4 fl (81-100) 10/22/18 06:34 MCH 29.8 pg (27.0-31.0) 10/22/18 06:34 MCHC Differential 32.9 pg (28.0-36.0) 10/22/18 06:34 RDW 14.4 % (11.5-20.0) 10/22/18 06:34 Plt Count 328 Th/cmm (150-400) 10/22/18 06:34 MPV 6.5 fl 10/22/18 06:34 Neutrophils % 59.5 % (40.0-80.0) 10/22/18 06:34 Lymphocytes % 28.8 % (20.0-50.0) 10/22/18 06:34 Monocytes % 9.4 % (2.0-10.0) 10/22/18 06:34 Eosinophils % 1.2 % (0.0-5.0) 10/22/18 06:34 Basophils % 1.1 % (0.0-2.0) 10/22/18 06:34 Sodium 136 mEq/L (136-145) 10/22/18 06:34 Potassium 3.7 mEq/L (3.5-5.1) 10/22/18 06:34 Chloride 103 mEq/L (98-107) 10/22/18 06:34 Carbon Dioxide 25.6 mEq/L (21.0-31.0) 10/22/18 06:34 Anion Gap 11.1 (7.0-16.0) 10/22/18 06:34 BUN 14 mg/dL (7-25) 10/22/18 06:34 Creatinine 0.6 mg/dL (0.6-1.2) 10/22/18 06:34 Est GFR ( Amer) TNP 10/22/18 06:34 Est GFR (Non-Af Amer) TNP 10/22/18 06:34 BUN/Creatinine Ratio 23.3 10/22/18 06:34 Glucose 109 mg/dL (70-105) H 10/22/18 06:34 Whole Bld Lactic Acid 0.86 mmol/L (0.60-1.99) 10/20/18 19:35 Calcium 9.3 mg/dL (8.6-10.3) 10/22/18 06:34 Total Bilirubin 0.7 mg/dL (0.3-1.0) 10/21/18 05:45 AST 17 U/L (13-39) 10/21/18 05:45 ALT 10 U/L (7-52) 10/21/18 05:45 Alkaline Phosphatase 53 U/L (34-104) 10/21/18 05:45 Troponin I 0.01 ng/mL (0.01-0.05) 10/20/18 19:35 Total Protein 6.1 gm/dL (6.0-8.3) 10/21/18 05:45 Albumin 3.5 gm/dL (3.7-5.3) L 10/21/18 05:45 Globulin 2.6 gm/dL 10/21/18 05:45 Albumin/Globulin Ratio 1.4 (1.0-1.8) 10/21/18 05:45 Triglycerides 192 mg/dL (<150) H 10/21/18 05:45 Cholesterol 203 mg/dL (<200) H 10/21/18 05:45 LDL Cholesterol Direct 146 mg/dL (75-193) 10/21/18 05:45 HDL Cholesterol 44 mg/dL (23-92) 10/21/18 05:45 TSH 1.40 uIU/ml (0.34-5.60) 10/21/18 05:45 Urine Source CLEAN C 10/20/18 21:20 Urine Color YELLOW 10/20/18 21:20 Urine Clarity CLEAR (CLEAR) 10/20/18 21:20 Urine pH 5.5 (4.6 - 8.0) 10/20/18 21:20 Ur Specific [place] 1.025 (1.005-1.030) 10/20/18 21:20 Urine Protein NEGATIVE mg/dL (NEGATIVE) 10/20/18 21:20 Urine Glucose (UA) 100 mg/dL (NEGATIVE) H 10/20/18 21:20 Urine Ketones NEGATIVE mg/dL (NEGATIVE) 10/20/18 21:20 Urine Blood NEGATIVE (NEGATIVE) 10/20/18 21:20 Urine Nitrate NEGATIVE (NEGATIVE) 10/20/18 21:20 Urine Bilirubin NEGATIVE (NEGATIVE) 10/20/18 21:20 Urine Urobilinogen 0.2 E.U./dL (0.2 - 1.0) 10/20/18 21:20 Ur Leukocyte Esterase NEGATIVE (NEGATIVE) 10/20/18 21:20 Urine RBC 2-5 /hpf (0-5) 10/20/18 21:20 Urine WBC 0-2 /hpf (0-5) 10/20/18 21:20 Ur Epithelial Cells MODERATE /lpf (FEW) 10/20/18 21:20 Urine Bacteria 1+ /hpf (NONE SEEN) H 10/20/18 21:20 - Physical Exam Vitals and I&O: Vital Signs Temp 97.9 F 10/22/18 16:00 Pulse 88 10/22/18 16:00 Resp 17 10/22/18 16:00 BP 113/65 10/22/18 16:00 Pulse Ox 97 10/22/18 16:00 Intake & Output 10/21/18 10/22/18 10/22/18 18:59 06:59 18:59 Intake Total 615 110 Balance 615 110 Weight (lbs) 49.895 kg 49.895 kg Intake: Intake, IV Amount 50 cefTRIAXone 1 gm In 50 Sodium Chloride 0.9% 50 ml @ 100 mls/hr IV Q24HR [facility] Rx#:[id number] Oral 615 60 Other: # Voids 4 3 # Bowel Movements 1 Weight Source Bedscale Bedscale Active Medications: Current Medications Acetaminophen (Tylenol) 650 mg PO Q6H PRN PRN Reason: PAIN Stop: 12/20/18 09:10 Atenolol (Tenormin) 25 mg PO DAILY ROHAN Stop: 12/21/18 08:59 Last Admin: 10/22/18 08:48 Dose: Not Given Cholecalciferol (Vitamin D3) 5,000 iu PO DAILY ROHAN Stop: 12/21/18 08:59 Last Admin: 10/22/18 08:46 Dose: 5,000 iu Docusate Sodium (Colace) 100 mg PO HS ROHAN Stop: 12/20/18 20:59 Last Admin: 10/21/18 20:14 Dose: 100 mg Ceftriaxone Sodium 1 gm/ (Sodium Chloride) 50 mls @ 100 mls/hr IV Q24HR ROHAN Stop: 10/27/18 20:29 Last Infusion: 10/21/18 20:44 Dose: Infused Lactobacillus Rhamnosus (Culturelle 15b) 1 each PO DAILY ROHAN Stop: 12/21/18 16:59 Last Admin: 10/22/18 17:42 Dose: 1 each Miscellaneous (Probiotic Screen) 1 ea MC PRN PRN PRN Reason: PROTOCOL Stop: 12/21/18 13:51 General: Alert, Cooperative HEENT: Atraumatic, PERRLA, EOMI Neck: Supple, JVD, Thyromegaly Cardiovascular: Regular rate, Normal S1, Normal S2 Lungs: Clear to auscultation Abdomen: Bowel sounds Assessment/Plan - Assessment Assessment: 1. Poor PO intake 2. Failure to thrive 3. Dementia -encourage PO intake -calorie count; if insufficient, discuss with family about PEG tube placement -Supportive care and management
[2018-10-22] MEDS: cefTRIAXone 1 GM in Sodium Chloride 0.9% 50 ML IV SCH (20:19)
[2018-10-23 09:31] LABS: ANION GAP 12.6 (7.0-16.0); BUN - UREA NITROGEN 16 mg/dL (7-25); CALCIUM SERUM 9.1 mg/dL (8.6-10.3); CARBON DIOXIDE 24.2 mEq/L (21.0-31.0); CHLORIDE 104 mEq/L (98-107); CREATININE - SERUM 0.7 mg/dL (0.6-1.2); GLUCOSE 133 mg/dL (70-105); POTASSIUM SERUM 3.8 mEq/L (3.5-5.1); SODIUM SERUM 137 mEq/L (136-145)
[2018-10-23 09:42] LABS: % BASOPHILS 0.7 % (0.0-2.0); % LYMPHOCYTES 25.5 % (20.0-50.0); % MONOCYTES 6.9 % (2.0-10.0); % NEUTROPHILS 65.9 % (40.0-80.0); EOSINOPHILE ABSOLUTE 0.1 Th/cmm (0.1-0.4); HEMOGLOBIN 13.5 gm/dL (12-16); LYMPHOCYTE ABSOLUTE 1.4 Th/cmm (1.5-3.0); MEAN CORPUSCULAR HEMOGLOBIN 30.4 pg (27.0-31.0); MEAN CORPUSCULAR HGB CONC 33.7 pg (28.0-36.0); MONOCYTE ABSOLUTE 0.4 Th/cmm (0.3-1.0); NEUTROPHILE ABSOLUTE 3.5 Th/cmm (1.8-8.0); PLATELET COUNT 308 Th/cmm (150-400); RED BLOOD COUNT 4.44 Mil/cmm (3.80-5.20); RED CELL DISTRIBUTION WIDTH 14.2 % (11.5-20.0); WHITE BLOOD COUNT 5.4 Th/cmm (4.8-10.8)
[2018-10-23] MEDS: Lactobacillus Rhamnosus GG 15 Billion CFU CAP.SPRINK PO SCH (09:52)
--- NOTE | 2018-10-23 10:43 | Internal Medicine Prog Note ---
Internal Medicine Subjective - Subjective Service Date: 10/23/18 Patient seen and examined:: with staff Patient is:: awake, verbal, confused Patient Complaints of:: other (weakness.) Per staff patient has:: no adverse event, no episodes of fall Internal Medicine Objective - Results Result Diagrams: 10/23/18 09:00 10/23/18 09:00 Recent Labs: Laboratory Last Values WBC 5.4 Th/cmm (4.8-10.8) 10/23/18 09:00 RBC 4.44 Mil/cmm (3.80-5.20) 10/23/18 09:00 Hgb 13.5 gm/dL (12-16) 10/23/18 09:00 Hct 40.0 % (41.0-60) L 10/23/18 09:00 MCV 90.0 fl (81-100) 10/23/18 09:00 MCH 30.4 pg (27.0-31.0) 10/23/18 09:00 MCHC Differential 33.7 pg (28.0-36.0) 10/23/18 09:00 RDW 14.2 % (11.5-20.0) 10/23/18 09:00 Plt Count 308 Th/cmm (150-400) 10/23/18 09:00 MPV 6.9 fl 10/23/18 09:00 Neutrophils % 65.9 % (40.0-80.0) 10/23/18 09:00 Lymphocytes % 25.5 % (20.0-50.0) 10/23/18 09:00 Monocytes % 6.9 % (2.0-10.0) 10/23/18 09:00 Eosinophils % 1.0 % (0.0-5.0) 10/23/18 09:00 Basophils % 0.7 % (0.0-2.0) 10/23/18 09:00 Sodium 137 mEq/L (136-145) 10/23/18 09:00 Potassium 3.8 mEq/L (3.5-5.1) 10/23/18 09:00 Chloride 104 mEq/L (98-107) 10/23/18 09:00 Carbon Dioxide 24.2 mEq/L (21.0-31.0) 10/23/18 09:00 Anion Gap 12.6 (7.0-16.0) 10/23/18 09:00 BUN 16 mg/dL (7-25) 10/23/18 09:00 Creatinine 0.7 mg/dL (0.6-1.2) 10/23/18 09:00 Est GFR ( Amer) TNP 10/23/18 09:00 Est GFR (Non-Af Amer) TNP 10/23/18 09:00 BUN/Creatinine Ratio 22.9 10/23/18 09:00 Glucose 133 mg/dL (70-105) H 10/23/18 09:00 Whole Bld Lactic Acid 0.86 mmol/L (0.60-1.99) 10/20/18 19:35 Calcium 9.1 mg/dL (8.6-10.3) 10/23/18 09:00 Total Bilirubin 0.7 mg/dL (0.3-1.0) 10/21/18 05:45 AST 17 U/L (13-39) 10/21/18 05:45 ALT 10 U/L (7-52) 10/21/18 05:45 Alkaline Phosphatase 53 U/L (34-104) 10/21/18 05:45 Troponin I 0.01 ng/mL (0.01-0.05) 10/20/18 19:35 Total Protein 6.1 gm/dL (6.0-8.3) 10/21/18 05:45 Albumin 3.5 gm/dL (3.7-5.3) L 10/21/18 05:45 Globulin 2.6 gm/dL 10/21/18 05:45 Albumin/Globulin Ratio 1.4 (1.0-1.8) 10/21/18 05:45 Triglycerides 192 mg/dL (<150) H 10/21/18 05:45 Cholesterol 203 mg/dL (<200) H 10/21/18 05:45 LDL Cholesterol Direct 146 mg/dL (75-193) 10/21/18 05:45 HDL Cholesterol 44 mg/dL (23-92) 10/21/18 05:45 TSH 1.40 uIU/ml (0.34-5.60) 10/21/18 05:45 Urine Source CLEAN C 10/20/18 21:20 Urine Color YELLOW 10/20/18 21:20 Urine Clarity CLEAR (CLEAR) 10/20/18 21:20 Urine pH 5.5 (4.6 - 8.0) 10/20/18 21:20 Ur Specific [place] 1.025 (1.005-1.030) 10/20/18 21:20 Urine Protein NEGATIVE mg/dL (NEGATIVE) 10/20/18 21:20 Urine Glucose (UA) 100 mg/dL (NEGATIVE) H 10/20/18 21:20 Urine Ketones NEGATIVE mg/dL (NEGATIVE) 10/20/18 21:20 Urine Blood NEGATIVE (NEGATIVE) 10/20/18 21:20 Urine Nitrate NEGATIVE (NEGATIVE) 10/20/18 21:20 Urine Bilirubin NEGATIVE (NEGATIVE) 10/20/18 21:20 Urine Urobilinogen 0.2 E.U./dL (0.2 - 1.0) 10/20/18 21:20 Ur Leukocyte Esterase NEGATIVE (NEGATIVE) 10/20/18 21:20 Urine RBC 2-5 /hpf (0-5) 10/20/18 21:20 Urine WBC 0-2 /hpf (0-5) 10/20/18 21:20 Ur Epithelial Cells MODERATE /lpf (FEW) 10/20/18 21:20 Urine Bacteria 1+ /hpf (NONE SEEN) H 10/20/18 21:20 - Physical Exam Vitals and I&O: Vital Signs Temp 97.2 F 10/23/18 08:00 Pulse 66 10/23/18 09:51 Resp 17 10/23/18 08:00 BP 120/53 10/23/18 09:51 Pulse Ox 97 10/23/18 08:00 Intake & Output 10/22/18 10/23/18 10/23/18 18:59 06:59 18:59 Intake Total 700 Balance 700 Weight (lbs) 44.225 kg Intake: Oral 700 Other: # Voids 2 Weight Source Bedscale Active Medications: Current Medications Acetaminophen (Tylenol) 650 mg PO Q6H PRN PRN Reason: PAIN Stop: 12/20/18 09:10 Atenolol (Tenormin) 25 mg PO DAILY ROHAN Stop: 12/21/18 08:59 Last Admin: 10/23/18 09:51 Dose: 25 mg Cholecalciferol (Vitamin D3) 5,000 iu PO DAILY ROHAN Stop: 12/21/18 08:59 Last Admin: 10/23/18 09:50 Dose: 5,000 iu Docusate Sodium (Colace) 100 mg PO HS ROHAN Stop: 12/20/18 20:59 Last Admin: 10/22/18 20:20 Dose: 100 mg Ceftriaxone Sodium 1 gm/ (Sodium Chloride) 50 mls @ 100 mls/hr IV Q24HR ROHAN Stop: 10/27/18 20:29 Last Admin: 10/22/18 20:19 Dose: 100 mls/hr Lactobacillus Rhamnosus (Culturelle 15b) 1 each PO DAILY ROHAN Stop: 12/21/18 16:59 Last Admin: 10/23/18 09:52 Dose: 1 each Miscellaneous (Probiotic Screen) 1 ea MC PRN PRN PRN Reason: PROTOCOL Stop: 12/21/18 13:51 Mupirocin (Bactroban Oint) 1 appl NS BID ROHAN Stop: 10/27/18 17:01 Last Admin: 10/23/18 09:50 Dose: 1 appl Physical Exam: Patient is still very dis-oriented. General: weak, demented HEENT: NC/AT Neck: Supple, No JVD Lungs: CTAB Cardiovascular: RRR, Normal S1 Abdomen: soft, non-tender Extremities: clear Neurological: no change Internal Medicine Assmt/Plan - Assessment Assessment: Poor oral intake. Failure to thrive. UTI. Moderate protein-calore malnutrition. Increased Generalized weakness. Hypertension. History of CAD. Dementia. Encephalopathy. Dysphagia. - Plan Plan: Continuation of care. Monitor Labs. Continue present meds as directed. Monitor vitals, Continue BP meds as directed. Accu-check daily, Continue DM meds as directed. Monitor Diet/Nutritional support. Monitor mental status progression. Monitor behavioral health status. Pain Management. Physical therapy/Occupational therapy. Fall precaution, frequent nursing rounds, and as needed restraints to prevent fall. Safety precaution. Supportive care. Continue collaborating with consulting specialists, case management and nursing team. Will Monitor patient and continue present care management. Nutritional Asmnt/Malnutr-PDOC - Dietary Evaluation Malnutrition Findings (Please click <Entered> for more info): Nutritional Asmnt/Malnutrition Start: 10/21/18 09: 36 Text: Status: Complete Freq: Protocol: Document 10/21/18 09:37 MARIANGEL (Rec: 10/21/18 09:41 MARIANGEL [email or web address]) Nutritional Asmnt/Malnutrition Patient General Information Nutritional Screening High Risk Diagnosis Failure to thrive Pertinent Medical Hx/Surgical Hx HTN, CAD, Dementia, Encephalopathy, dysphagia, multiple UTIs, FTT Subjective Information Pt is a 88-year-old female admitted on 10/20 c/o dizziness and weakness. Pt has noted appetite change, poor PO intake. Per Consultation (10/20 ), nursing staff is to encourage and monitor PO intake. Calorie count will be considered to assess how much the Pt is eating. If Pt is unable to tolerate meals PEG placement will be considered. Pt is AAOx2, only alert to herself. Spoke with RNAnnabelle, Pt ate about 20% of breakfast . Provided RN with an Ensure Enlive to offer when Pt wakes up before lunch. Adding Ensure Enlive between meals to encourage improved nutrition intake. HT: 53 WT: 105 LB (47.73 kg) BMI: 18.60 (Normal) GI: hypoactive, flat, soft, non-tender BM: Not noted Skin: WNL, warm, dry, elastic, intact Magnus: 16 Diet Order: Mechanical Soft Estimated Energy Needs: ( Geriatric, CBW) 3864-0161 kcals (25-30 kcals/ kg) 47-57g Pro (1.0-1.2 g/kg) 8881-5454 ml (25-30 ml/kg) Current Diet Order/ Nutrition Support Mechanical Soft Patient / S.O Can't verbalize diet edu Pertinent Medications No active medications to note Pertinent Labs 10/21: Hgb/Hct 13.6/40.8, AST 12 Nutritional Hx/Data Height 1.6 m Height (Calculated Centimeters) 160.0 Current Weight (lbs) 47.627 kg Weight (Calculated Kilograms) 47.6 Weight (Calculated Grams) 66797.2 [place] Body Weight 115 LB (52.27 kg) % [place] Body Weight 91 Body Mass Index (BMI) 18.6 Weight Status Approriate GI Symptoms GI Symptoms None Last BM Not noted Skin Integrity/Comment: Skin: WNL, warm, dry, elastic, intact Magnus: 16 Current %PO Negligible < 25% Estimated Nutritional Goals BEE in Kcals: Using Current wt Calories/Kcals/Kg 25-30 Kcals Calculated 3721-3882 Protein: Using Current wt Protein g/k.0-1.2 Protein Calculated 47-57 Fluid: ml 3226-2107 ml (25-30 ml/kg) Nutritional Problem 1. Problem Problem Inadequate energy intake Etiology r/t possible poor appetite/ depression Signs/Symptoms: aeb RN sated Pt ate 20% breakfast and Dx FTT with poor PO intake. Intervention/Recommendation Comments 1. Continue with mechanical soft diet as ordered. 2. Nursing staff to continue improved PO intake encouragement per MD order. 3. Add Ensure Enlive between meals (completed). Expected Outcomes/Goals Expected Outcomes/Goals 1. PO intake to meet 75% of nutritional needs. 2. Monitor PO intake, wt, nutrition related labs, and skin integrity. 3. F/U as high risk in 2-3 days, 10/23-10/24
--- NOTE | 2018-10-23 15:47 | GI Progress Note ---
Subjective - Review of Systems Service Date: 10/23/18 Subjective: Events noted. Eating about 50% meals. GI OBJECTIVE - Results Result Diagrams: 10/23/18 09:00 10/23/18 09:00 Recent Labs: Laboratory Last Values WBC 5.4 Th/cmm (4.8-10.8) 10/23/18 09:00 RBC 4.44 Mil/cmm (3.80-5.20) 10/23/18 09:00 Hgb 13.5 gm/dL (12-16) 10/23/18 09:00 Hct 40.0 % (41.0-60) L 10/23/18 09:00 MCV 90.0 fl (81-100) 10/23/18 09:00 MCH 30.4 pg (27.0-31.0) 10/23/18 09:00 MCHC Differential 33.7 pg (28.0-36.0) 10/23/18 09:00 RDW 14.2 % (11.5-20.0) 10/23/18 09:00 Plt Count 308 Th/cmm (150-400) 10/23/18 09:00 MPV 6.9 fl 10/23/18 09:00 Neutrophils % 65.9 % (40.0-80.0) 10/23/18 09:00 Lymphocytes % 25.5 % (20.0-50.0) 10/23/18 09:00 Monocytes % 6.9 % (2.0-10.0) 10/23/18 09:00 Eosinophils % 1.0 % (0.0-5.0) 10/23/18 09:00 Basophils % 0.7 % (0.0-2.0) 10/23/18 09:00 Sodium 137 mEq/L (136-145) 10/23/18 09:00 Potassium 3.8 mEq/L (3.5-5.1) 10/23/18 09:00 Chloride 104 mEq/L (98-107) 10/23/18 09:00 Carbon Dioxide 24.2 mEq/L (21.0-31.0) 10/23/18 09:00 Anion Gap 12.6 (7.0-16.0) 10/23/18 09:00 BUN 16 mg/dL (7-25) 10/23/18 09:00 Creatinine 0.7 mg/dL (0.6-1.2) 10/23/18 09:00 Est GFR ( Amer) TNP 10/23/18 09:00 Est GFR (Non-Af Amer) TNP 10/23/18 09:00 BUN/Creatinine Ratio 22.9 10/23/18 09:00 Glucose 133 mg/dL (70-105) H 10/23/18 09:00 Whole Bld Lactic Acid 0.86 mmol/L (0.60-1.99) 10/20/18 19:35 Calcium 9.1 mg/dL (8.6-10.3) 10/23/18 09:00 Total Bilirubin 0.7 mg/dL (0.3-1.0) 10/21/18 05:45 AST 17 U/L (13-39) 10/21/18 05:45 ALT 10 U/L (7-52) 10/21/18 05:45 Alkaline Phosphatase 53 U/L (34-104) 10/21/18 05:45 Troponin I 0.01 ng/mL (0.01-0.05) 10/20/18 19:35 Total Protein 6.1 gm/dL (6.0-8.3) 10/21/18 05:45 Albumin 3.5 gm/dL (3.7-5.3) L 10/21/18 05:45 Globulin 2.6 gm/dL 10/21/18 05:45 Albumin/Globulin Ratio 1.4 (1.0-1.8) 10/21/18 05:45 Triglycerides 192 mg/dL (<150) H 10/21/18 05:45 Cholesterol 203 mg/dL (<200) H 10/21/18 05:45 LDL Cholesterol Direct 146 mg/dL (75-193) 10/21/18 05:45 HDL Cholesterol 44 mg/dL (23-92) 10/21/18 05:45 TSH 1.40 uIU/ml (0.34-5.60) 10/21/18 05:45 Urine Source CLEAN C 10/20/18 21:20 Urine Color YELLOW 10/20/18 21:20 Urine Clarity CLEAR (CLEAR) 10/20/18 21:20 Urine pH 5.5 (4.6 - 8.0) 10/20/18 21:20 Ur Specific [place] 1.025 (1.005-1.030) 10/20/18 21:20 Urine Protein NEGATIVE mg/dL (NEGATIVE) 10/20/18 21:20 Urine Glucose (UA) 100 mg/dL (NEGATIVE) H 10/20/18 21:20 Urine Ketones NEGATIVE mg/dL (NEGATIVE) 10/20/18 21:20 Urine Blood NEGATIVE (NEGATIVE) 10/20/18 21:20 Urine Nitrate NEGATIVE (NEGATIVE) 10/20/18 21:20 Urine Bilirubin NEGATIVE (NEGATIVE) 10/20/18 21:20 Urine Urobilinogen 0.2 E.U./dL (0.2 - 1.0) 10/20/18 21:20 Ur Leukocyte Esterase NEGATIVE (NEGATIVE) 10/20/18 21:20 Urine RBC 2-5 /hpf (0-5) 10/20/18 21:20 Urine WBC 0-2 /hpf (0-5) 10/20/18 21:20 Ur Epithelial Cells MODERATE /lpf (FEW) 10/20/18 21:20 Urine Bacteria 1+ /hpf (NONE SEEN) H 10/20/18 21:20 - Physical Exam Vitals and I&O: Vital Signs Temp 97.2 F 10/23/18 08:00 Pulse 66 10/23/18 09:51 Resp 17 10/23/18 08:00 BP 120/53 10/23/18 09:51 Pulse Ox 97 10/23/18 08:00 Intake & Output 10/22/18 10/23/18 10/23/18 18:59 06:59 18:59 Intake Total 700 Balance 700 Weight (lbs) 44.225 kg Intake: Oral 700 Other: # Voids 2 Weight Source Bedscale Active Medications: Current Medications Acetaminophen (Tylenol) 650 mg PO Q6H PRN PRN Reason: PAIN Stop: 12/20/18 09:10 Atenolol (Tenormin) 25 mg PO DAILY ROHAN Stop: 12/21/18 08:59 Last Admin: 10/23/18 09:51 Dose: 25 mg Cholecalciferol (Vitamin D3) 5,000 iu PO DAILY ROHAN Stop: 12/21/18 08:59 Last Admin: 10/23/18 09:50 Dose: 5,000 iu Docusate Sodium (Colace) 100 mg PO HS ROHAN Stop: 12/20/18 20:59 Last Admin: 10/22/18 20:20 Dose: 100 mg Ceftriaxone Sodium 1 gm/ (Sodium Chloride) 50 mls @ 100 mls/hr IV Q24HR [facility] Stop: 10/27/18 20:29 Last Admin: 10/22/18 20:19 Dose: 100 mls/hr Lactobacillus Rhamnosus (Culturelle 15b) 1 each PO DAILY ROHAN Stop: 12/21/18 16:59 Last Admin: 10/23/18 09:52 Dose: 1 each Miscellaneous (Probiotic Screen) 1 ea MC PRN PRN PRN Reason: PROTOCOL Stop: 12/21/18 13:51 Mupirocin (Bactroban Oint) 1 appl NS BID [facility] Stop: 10/27/18 17:01 Last Admin: 10/23/18 09:50 Dose: 1 appl General: No acute distress Abdomen: Bowel sounds, Soft, no Tender Assessment/Plan - Assessment Assessment: IMPRESSION: 1. Anorexia. 2. Dysphagia. 3. Dementia. RECOMMENDATIONS: 1. Monitor caloric intake - oral diet as tolerated. 2. Add Megace. 3. If oral intake insufficient and if family agreeable, then consider PEG placement next week.
[2018-10-23] MEDS: cefTRIAXone 1 GM in Sodium Chloride 0.9% 50 ML IV SCH (20:00)
--- NOTE | 2018-10-24 04:44 | Consultation ---
DATE OF CONSULTATION: 10/23/2018 HISTORY OF PRESENT ILLNESS: This 88-year-old female was seen and examined at the courtesy of Dr. Weinstein. The patient apparently was transferred here from a custodial with increasing weakness, failure to thrive, extremely poor oral intake. The patient does have a history of hypertension, coronary artery disease, history of dizziness, dysphagia, history of recurrent UTIs, dementia. No proper history is available from the patient. Information obtained from the chart, limited information. PAST MEDICAL HISTORY: Apparently as outlined above. FAMILY HISTORY: Not available to me. SOCIAL HISTORY: The patient lives in a custodial. No information available to me. REVIEW OF SYSTEMS: Cannot be obtained, the patient is confused and has dementia. PHYSICAL EXAMINATION: VITAL SIGNS: Heart rate has ranged from 57-66, blood pressure is around 124/57, temperature 97.7, respirations 18, O2 saturation 97%. SKIN: Normal. HEAD: Normocephalic. EYES: Conjunctivae were pink. There was no icterus in the eyes. Pupils reacting to light. NECK: There was no increased jugular venous distention, no thyromegaly, no lymphadenopathy. Carotids equal both sides. CHEST: Bilaterally symmetrical. Moves well with respiration. Respiratory movements equal both sides. Trachea is central. There is note to percussion. Breath sound, few scattered rales. CARDIOVASCULAR SYSTEM: PMI not well localized. There is no pulsation or thrill. No parasternal heave. S1 normal, S2 physiologic. There were no S3, no rub. ABDOMEN: Soft, no tenderness, no rigidity, no guarding, no organomegaly. Bowel sounds normal. No edema. EXTREMITIES: No calf tenderness. Peripheral pulses diminished. LABORATORY AND DIAGNOSTIC DATA: Her EKG shows sinus rhythm, possible LVH, possible old inferior wall myocardial infarction, T-wave changes in lead 1 and aVL may be due to LVH or ischemia. Interventricular conduction delay, right bundle-branch block type. Looking at the labs, WBC count was 5.4, RBC 4.44, hemoglobin 13.5, hematocrit 40, MCV 90, MCH 30.4, MCHC 33.7, platelet count 308. Neutrophil count was 65.9 and lymphocytes 25.5, platelet count 308. Sodium was 137, potassium 3.8, chloride 104, carbon dioxide 24.2, BUN 16, creatinine 0.7, glucose is 133. Lactic acid was 0.86, calcium 9.1, total bilirubin 0.7, AST 17, ALT 10, alkaline phosphatase 53. Troponin was less than 0.01. Total protein 6.1, albumin 3.5, globulin 2.6. Triglycerides 192, cholesterol is 203, LDL cholesterol is 146, HDL is 44, TSH 1.40. The patient is getting atenolol 25 mg p.o. daily, vitamin D3 5000 p.o. Patient also get Megace. Patient on IV Rocephin. IMPRESSION: Failure to thrive, coronary artery disease, history of angina, stable; hypertension, dizziness, etiology to be determined; dysphagia, history of recurrent urinary tract infections, dementia, hyperlipidemia. PLAN: Suggest to continue present management. We will get a lipid profile, TSH. We will add Lipitor 20 mg daily, baby aspirin if it is okay with the food operations manager. Patient is already being evaluated by GI regarding nutrition. If the calorie count is not good, the patient may end up with PEG. The patient is to continue present management. Further recommendation will be made depending on the results of tests available. We will also get echocardiogram. Chest x-ray, if not done. Repeat EKG in the a.m. Further recommendation will be made depending on the rest of tests available. [facility]# [id number]
[2018-10-24] MEDS: Lactobacillus Rhamnosus GG 15 Billion CFU CAP.SPRINK PO SCH (08:33)
[2018-10-24] MEDS: Aspirin 81mg Chewable Tab PO SCH (08:34)
[2018-10-24] MEDS: Atorvastatin Calcium 10 MG TAB PO SCH (08:35)
--- NOTE | 2018-10-24 10:38 | Internal Medicine Prog Note ---
Internal Medicine Subjective - Subjective Patient is:: awake, verbal, confused Patient Complaints of:: other (weakness.) Per staff patient has:: no adverse event, no episodes of fall Internal Medicine Objective - Results Result Diagrams: 10/23/18 09:00 10/23/18 09:00 Recent Labs: Laboratory Last Values WBC 5.4 Th/cmm (4.8-10.8) 10/23/18 09:00 RBC 4.44 Mil/cmm (3.80-5.20) 10/23/18 09:00 Hgb 13.5 gm/dL (12-16) 10/23/18 09:00 Hct 40.0 % (41.0-60) L 10/23/18 09:00 MCV 90.0 fl (81-100) 10/23/18 09:00 MCH 30.4 pg (27.0-31.0) 10/23/18 09:00 MCHC Differential 33.7 pg (28.0-36.0) 10/23/18 09:00 RDW 14.2 % (11.5-20.0) 10/23/18 09:00 Plt Count 308 Th/cmm (150-400) 10/23/18 09:00 MPV 6.9 fl 10/23/18 09:00 Neutrophils % 65.9 % (40.0-80.0) 10/23/18 09:00 Lymphocytes % 25.5 % (20.0-50.0) 10/23/18 09:00 Monocytes % 6.9 % (2.0-10.0) 10/23/18 09:00 Eosinophils % 1.0 % (0.0-5.0) 10/23/18 09:00 Basophils % 0.7 % (0.0-2.0) 10/23/18 09:00 Sodium 137 mEq/L (136-145) 10/23/18 09:00 Potassium 3.8 mEq/L (3.5-5.1) 10/23/18 09:00 Chloride 104 mEq/L (98-107) 10/23/18 09:00 Carbon Dioxide 24.2 mEq/L (21.0-31.0) 10/23/18 09:00 Anion Gap 12.6 (7.0-16.0) 10/23/18 09:00 BUN 16 mg/dL (7-25) 10/23/18 09:00 Creatinine 0.7 mg/dL (0.6-1.2) 10/23/18 09:00 Est GFR ( Amer) TNP 10/23/18 09:00 Est GFR (Non-Af Amer) TNP 10/23/18 09:00 BUN/Creatinine Ratio 22.9 10/23/18 09:00 Glucose 133 mg/dL (70-105) H 10/23/18 09:00 Whole Bld Lactic Acid 0.86 mmol/L (0.60-1.99) 10/20/18 19:35 Calcium 9.1 mg/dL (8.6-10.3) 10/23/18 09:00 Total Bilirubin 0.7 mg/dL (0.3-1.0) 10/21/18 05:45 AST 17 U/L (13-39) 10/21/18 05:45 ALT 10 U/L (7-52) 10/21/18 05:45 Alkaline Phosphatase 53 U/L (34-104) 10/21/18 05:45 Troponin I 0.01 ng/mL (0.01-0.05) 10/20/18 19:35 Total Protein 6.1 gm/dL (6.0-8.3) 10/21/18 05:45 Albumin 3.5 gm/dL (3.7-5.3) L 10/21/18 05:45 Globulin 2.6 gm/dL 10/21/18 05:45 Albumin/Globulin Ratio 1.4 (1.0-1.8) 10/21/18 05:45 Triglycerides 192 mg/dL (<150) H 10/21/18 05:45 Cholesterol 203 mg/dL (<200) H 10/21/18 05:45 LDL Cholesterol Direct 146 mg/dL (75-193) 10/21/18 05:45 HDL Cholesterol 44 mg/dL (23-92) 10/21/18 05:45 TSH 1.40 uIU/ml (0.34-5.60) 10/21/18 05:45 Urine Source CLEAN C 10/20/18 21:20 Urine Color YELLOW 10/20/18 21:20 Urine Clarity CLEAR (CLEAR) 10/20/18 21:20 Urine pH 5.5 (4.6 - 8.0) 10/20/18 21:20 Ur Specific [place] 1.025 (1.005-1.030) 10/20/18 21:20 Urine Protein NEGATIVE mg/dL (NEGATIVE) 10/20/18 21:20 Urine Glucose (UA) 100 mg/dL (NEGATIVE) H 10/20/18 21:20 Urine Ketones NEGATIVE mg/dL (NEGATIVE) 10/20/18 21:20 Urine Blood NEGATIVE (NEGATIVE) 10/20/18 21:20 Urine Nitrate NEGATIVE (NEGATIVE) 10/20/18 21:20 Urine Bilirubin NEGATIVE (NEGATIVE) 10/20/18 21:20 Urine Urobilinogen 0.2 E.U./dL (0.2 - 1.0) 10/20/18 21:20 Ur Leukocyte Esterase NEGATIVE (NEGATIVE) 10/20/18 21:20 Urine RBC 2-5 /hpf (0-5) 10/20/18 21:20 Urine WBC 0-2 /hpf (0-5) 10/20/18 21:20 Ur Epithelial Cells MODERATE /lpf (FEW) 10/20/18 21:20 Urine Bacteria 1+ /hpf (NONE SEEN) H 10/20/18 21:20 - Physical Exam Vitals and I&O: Vital Signs Temp 97.2 F 10/24/18 08:00 Pulse 60 10/24/18 08:33 Resp 17 10/24/18 08:00 BP 137/72 10/24/18 08:33 Pulse Ox 99 10/24/18 08:00 Intake & Output 10/23/18 10/24/18 10/24/18 18:59 06:59 18:59 Intake Total 300 120 Balance 300 120 Weight (lbs) 101 lb 101 lb Intake: Intake, IV Amount 50 [id number] 1 gm In 50 Sodium Chloride 0.9% 50 ml @ 100 mls/hr IV Q24HR [facility] Rx#:[id number] Oral 250 120 Other: # Voids 3 # Bowel Movements 0 Weight Source Bedscale Bedscale Active Medications: Current Medications Acetaminophen (Tylenol) 650 mg PO Q6H PRN PRN Reason: PAIN Stop: 12/20/18 09:10 Aspirin (Aspirin Chewable) 81 mg PO DAILY ROHAN Stop: 12/23/18 08:59 Last Admin: 10/24/18 08:34 Dose: Not Given Atenolol (Tenormin) 25 mg PO DAILY [facility] Stop: 12/21/18 08:59 Last Admin: 10/24/18 08:33 Dose: 25 mg Atorvastatin Calcium (Lipitor) 20 mg PO DAILY [facility]; Protocol Stop: 12/23/18 08:59 Last Admin: 10/24/18 08:35 Dose: 20 mg Cholecalciferol (Vitamin D3) 5,000 iu PO DAILY ROHAN Stop: 12/21/18 08:59 Last Admin: 10/24/18 08:33 Dose: 5,000 iu Docusate Sodium (Colace) 100 mg PO HS ROHAN Stop: 12/20/18 20:59 Last Admin: 10/23/18 20:20 Dose: 100 mg Ceftriaxone Sodium 1 gm/ (Sodium Chloride) 50 mls @ 100 mls/hr IV Q24HR ROHAN Stop: 10/27/18 20:29 Last Infusion: 10/23/18 20:30 Dose: Infused Lactobacillus Rhamnosus (Culturelle 15b) 1 each PO DAILY ROHAN Stop: 12/21/18 16:59 Last Admin: 10/24/18 08:33 Dose: 1 each Megestrol Acetate (Megace) 400 mg PO DAILY [facility]; Protocol Stop: 12/22/18 15:59 Last Admin: 10/24/18 08:33 Dose: 400 mg Miscellaneous (Probiotic Screen) 1 ea MC PRN PRN PRN Reason: PROTOCOL Stop: 12/21/18 13:51 Mupirocin (Bactroban Oint) 1 appl NS BID ROHAN Stop: 10/27/18 17:01 Last Admin: 10/24/18 08:35 Dose: 1 appl General: weak, demented HEENT: NC/AT Neck: Supple, No JVD Lungs: CTAB Cardiovascular: RRR, Normal S1, Normal S2 Abdomen: soft, non-tender Extremities: clear Neurological: no change Internal Medicine Assmt/Plan - Assessment Assessment: Poor oral intake. Failure to thrive. UTI. Moderate protein-calore malnutrition. Increased Generalized weakness. Hypertension. History of CAD. Dementia. Encephalopathy. Dysphagia. - Plan Plan: Continue current treatment plan. Monitor Labs.Continue current medications Continue to monitor VS Monitor Diet/Nutritional support. Monitor behavior progression. Pain Management. PT/OT prn Safety precaution, Fall precaution, frequent nursing round. Supportive care. Continue collaborating with consulting specialists, case management and nursing team. Nutritional Asmnt/Malnutr-PDOC - Dietary Evaluation Malnutrition Findings (Please click <Entered> for more info): Nutritional Asmnt/Malnutrition Start: 10/21/18 09: 36 Text: Status: Complete Freq: Protocol: Document 10/21/18 09:37 MARIANGEL (Rec: 10/21/18 09:41 MARIANGEL [id number]) Nutritional Asmnt/Malnutrition Patient General Information Nutritional Screening High Risk Diagnosis Failure to thrive Pertinent Medical Hx/Surgical Hx HTN, CAD, Dementia, Encephalopathy, dysphagia, multiple UTIs, FTT Subjective Information Pt is a 88-year-old female admitted on 10/20 c/o dizziness and weakness. Pt has noted appetite change, poor PO intake. Per Consultation (10/20 ), nursing staff is to encourage and monitor PO intake. Calorie count will be considered to assess how much the Pt is eating. If Pt is unable to tolerate meals PEG placement will be considered. Pt is AAOx2, only alert to herself. Spoke with RNAnnabelle, Pt ate about 20% of breakfast . Provided RN with an Ensure Enlive to offer when Pt wakes up before lunch. Adding Ensure Enlive between meals to encourage improved nutrition intake. HT: 53 WT: 105 LB (47.73 kg) BMI: 18.60 (Normal) GI: hypoactive, flat, soft, non-tender BM: Not noted Skin: WNL, warm, dry, elastic, intact Magnus: 16 Diet Order: Mechanical Soft Estimated Energy Needs: ( Geriatric, CBW) 5912-9663 kcals (25-30 kcals/ kg) 47-57g Pro (1.0-1.2 g/kg) 0941-2436 ml (25-30 ml/kg) Current Diet Order/ Nutrition Support Mechanical Soft Patient / S.O Can't verbalize diet edu Pertinent Medications No active medications to note Pertinent Labs 10/21: Hgb/Hct 13.6/40.8, AST 12 Nutritional Hx/Data Height 5 ft 3 in Height (Calculated Centimeters) 160.0 Current Weight (lbs) 105 lb Weight (Calculated Kilograms) 47.6 Weight (Calculated Grams) 04550.2 [place] Body Weight 115 LB (52.27 kg) % [place] Body Weight 91 Body Mass Index (BMI) 18.6 Weight Status Approriate GI Symptoms GI Symptoms None Last BM Not noted Skin Integrity/Comment: Skin: WNL, warm, dry, elastic, intact Magnus: 16 Current %PO Negligible < 25% Estimated Nutritional Goals BEE in Kcals: Using Current wt Calories/Kcals/Kg 25-30 Kcals Calculated 8021-3137 Protein: Using Current wt Protein g/k.0-1.2 Protein Calculated 47-57 Fluid: ml 9530-8334 ml (25-30 ml/kg) Nutritional Problem 1. Problem Problem Inadequate energy intake Etiology r/t possible poor appetite/ depression Signs/Symptoms: aeb RN sated Pt ate 20% breakfast and Dx FTT with poor PO intake. Intervention/Recommendation Comments 1. Continue with mechanical soft diet as ordered. 2. Nursing staff to continue improved PO intake encouragement per MD order. 3. Add Ensure Enlive between meals (completed). Expected Outcomes/Goals Expected Outcomes/Goals 1. PO intake to meet 75% of nutritional needs. 2. Monitor PO intake, wt, nutrition related labs, and skin integrity. 3. F/U as high risk in 2-3 days, 10/23-10/24
[2018-10-24] MEDS: cefTRIAXone 1 GM in Sodium Chloride 0.9% 50 ML IV SCH (20:40)
[2018-10-25] MEDS: Atorvastatin Calcium 10 MG TAB PO SCH (08:45)
[2018-10-25] MEDS: Aspirin 81mg Chewable Tab PO SCH (08:45)
[2018-10-25] MEDS: Lactobacillus Rhamnosus GG 15 Billion CFU CAP.SPRINK PO SCH (08:45)
--- NOTE | 2018-10-25 09:23 | Diagnostic Imaging Report ---
CHEST X-RAY: AP view INDICATION: Weakness COMPARISON: None FINDINGS: Left chest wall pacemaker is noted with leads in the region right atrium and right ventricle. Chronic lung changes are seen with slight increased left upper lung zone markings. No focal consolidation or effusions. Heart size normal. Atherosclerosis is noted. Degenerative changes of the spine are noted. Metallic density possible postsurgical changes of upper lumbar spine are noted. IMPRESSION: Chronic lung changes. Slight increased left apical lung markings may be chronic. Faint infiltrate is less likely however, clinical correlation is needed. Left chest wall pacemaker noted with leads in the region right atrium and right ventricle Atherosclerotic vascular disease.
--- NOTE | 2018-10-25 11:04 | Internal Medicine Prog Note ---
Internal Medicine Subjective - Subjective Service Date: 10/25/18 Patient seen and examined:: with staff Patient is:: awake, verbal, confused Patient Complaints of:: other (weakness.) Per staff patient has:: no adverse event, no episodes of fall Internal Medicine Objective - Results Result Diagrams: 10/23/18 09:00 10/23/18 09:00 Recent Labs: Laboratory Last Values WBC 5.4 Th/cmm (4.8-10.8) 10/23/18 09:00 RBC 4.44 Mil/cmm (3.80-5.20) 10/23/18 09:00 Hgb 13.5 gm/dL (12-16) 10/23/18 09:00 Hct 40.0 % (41.0-60) L 10/23/18 09:00 MCV 90.0 fl (81-100) 10/23/18 09:00 MCH 30.4 pg (27.0-31.0) 10/23/18 09:00 MCHC Differential 33.7 pg (28.0-36.0) 10/23/18 09:00 RDW 14.2 % (11.5-20.0) 10/23/18 09:00 Plt Count 308 Th/cmm (150-400) 10/23/18 09:00 MPV 6.9 fl 10/23/18 09:00 Neutrophils % 65.9 % (40.0-80.0) 10/23/18 09:00 Lymphocytes % 25.5 % (20.0-50.0) 10/23/18 09:00 Monocytes % 6.9 % (2.0-10.0) 10/23/18 09:00 Eosinophils % 1.0 % (0.0-5.0) 10/23/18 09:00 Basophils % 0.7 % (0.0-2.0) 10/23/18 09:00 Sodium 137 mEq/L (136-145) 10/23/18 09:00 Potassium 3.8 mEq/L (3.5-5.1) 10/23/18 09:00 Chloride 104 mEq/L (98-107) 10/23/18 09:00 Carbon Dioxide 24.2 mEq/L (21.0-31.0) 10/23/18 09:00 Anion Gap 12.6 (7.0-16.0) 10/23/18 09:00 BUN 16 mg/dL (7-25) 10/23/18 09:00 Creatinine 0.7 mg/dL (0.6-1.2) 10/23/18 09:00 Est GFR ( Amer) TNP 10/23/18 09:00 Est GFR (Non-Af Amer) TNP 10/23/18 09:00 BUN/Creatinine Ratio 22.9 10/23/18 09:00 Glucose 133 mg/dL (70-105) H 10/23/18 09:00 Whole Bld Lactic Acid 0.86 mmol/L (0.60-1.99) 10/20/18 19:35 Calcium 9.1 mg/dL (8.6-10.3) 10/23/18 09:00 Total Bilirubin 0.7 mg/dL (0.3-1.0) 10/21/18 05:45 AST 17 U/L (13-39) 10/21/18 05:45 ALT 10 U/L (7-52) 10/21/18 05:45 Alkaline Phosphatase 53 U/L (34-104) 10/21/18 05:45 Troponin I 0.01 ng/mL (0.01-0.05) 10/20/18 19:35 Total Protein 6.1 gm/dL (6.0-8.3) 10/21/18 05:45 Albumin 3.5 gm/dL (3.7-5.3) L 10/21/18 05:45 Globulin 2.6 gm/dL 10/21/18 05:45 Albumin/Globulin Ratio 1.4 (1.0-1.8) 10/21/18 05:45 Triglycerides 192 mg/dL (<150) H 10/21/18 05:45 Cholesterol 203 mg/dL (<200) H 10/21/18 05:45 LDL Cholesterol Direct 146 mg/dL (75-193) 10/21/18 05:45 HDL Cholesterol 44 mg/dL (23-92) 10/21/18 05:45 TSH 1.40 uIU/ml (0.34-5.60) 10/21/18 05:45 Urine Source CLEAN C 10/20/18 21:20 Urine Color YELLOW 10/20/18 21:20 Urine Clarity CLEAR (CLEAR) 10/20/18 21:20 Urine pH 5.5 (4.6 - 8.0) 10/20/18 21:20 Ur Specific [place] 1.025 (1.005-1.030) 10/20/18 21:20 Urine Protein NEGATIVE mg/dL (NEGATIVE) 10/20/18 21:20 Urine Glucose (UA) 100 mg/dL (NEGATIVE) H 10/20/18 21:20 Urine Ketones NEGATIVE mg/dL (NEGATIVE) 10/20/18 21:20 Urine Blood NEGATIVE (NEGATIVE) 10/20/18 21:20 Urine Nitrate NEGATIVE (NEGATIVE) 10/20/18 21:20 Urine Bilirubin NEGATIVE (NEGATIVE) 10/20/18 21:20 Urine Urobilinogen 0.2 E.U./dL (0.2 - 1.0) 10/20/18 21:20 Ur Leukocyte Esterase NEGATIVE (NEGATIVE) 10/20/18 21:20 Urine RBC 2-5 /hpf (0-5) 10/20/18 21:20 Urine WBC 0-2 /hpf (0-5) 10/20/18 21:20 Ur Epithelial Cells MODERATE /lpf (FEW) 10/20/18 21:20 Urine Bacteria 1+ /hpf (NONE SEEN) H 10/20/18 21:20 - Physical Exam Vitals and I&O: Vital Signs Temp 97.2 F 10/25/18 08:00 Pulse 64 10/25/18 08:45 Resp 18 10/25/18 08:00 BP 125/65 10/25/18 08:45 Pulse Ox 98 10/25/18 08:00 Intake & Output 10/24/18 10/25/18 10/25/18 18:59 06:59 18:59 Intake Total 120 150 Balance 120 150 Weight (lbs) 45.813 kg 47.854 kg Intake: Oral 120 150 Other: # Voids 2 Weight Source Bedscale Bedscale Active Medications: Current Medications Acetaminophen (Tylenol) 650 mg PO Q6H PRN PRN Reason: PAIN Stop: 12/20/18 09:10 Aspirin (Aspirin Chewable) 81 mg PO DAILY ROHAN Stop: 12/23/18 08:59 Last Admin: 10/25/18 08:45 Dose: 81 mg Atenolol (Tenormin) 25 mg PO DAILY ROHAN Stop: 12/21/18 08:59 Last Admin: 10/25/18 08:45 Dose: 25 mg Atorvastatin Calcium (Lipitor) 20 mg PO DAILY [facility]; Protocol Stop: 12/23/18 08:59 Last Admin: 10/25/18 08:45 Dose: 20 mg Cholecalciferol (Vitamin D3) 5,000 iu PO DAILY ROHAN Stop: 12/21/18 08:59 Last Admin: 10/25/18 08:45 Dose: 5,000 iu Docusate Sodium (Colace) 100 mg PO HS ROHAN Stop: 12/20/18 20:59 Last Admin: 10/24/18 20:40 Dose: 100 mg Ceftriaxone Sodium 1 gm/ (Sodium Chloride) 50 mls @ 100 mls/hr IV Q24HR ROHAN Stop: 10/27/18 20:29 Last Admin: 10/24/18 20:40 Dose: 100 mls/hr Lactobacillus Rhamnosus (Culturelle 15b) 1 each PO DAILY ROHAN Stop: 12/21/18 16:59 Last Admin: 10/25/18 08:45 Dose: 1 each Megestrol Acetate (Megace) 400 mg PO DAILY [facility]; Protocol Stop: 12/22/18 15:59 Last Admin: 10/25/18 08:44 Dose: 400 mg Miscellaneous (Probiotic Screen) 1 ea MC PRN PRN PRN Reason: PROTOCOL Stop: 12/21/18 13:51 Mupirocin (Bactroban Oint) 1 appl NS BID ROHAN Stop: 10/27/18 17:01 Last Admin: 10/25/18 08:44 Dose: 1 appl Physical Exam: Patient remains very confused and weak. General: weak, demented HEENT: NC/AT Neck: Supple, No JVD Lungs: CTAB Cardiovascular: RRR, Normal S1, Normal S2 Abdomen: soft, non-tender Extremities: clear Neurological: no change Internal Medicine Assmt/Plan - Assessment Assessment: Poor oral intake. Failure to thrive. UTI. Moderate protein-calore malnutrition. Increased Generalized weakness. Hypertension. History of CAD. Dementia. Encephalopathy. Dysphagia. - Plan Plan: Continuation of care. Monitor Labs. Continue present meds as directed. Monitor vitals, Continue BP meds as directed. Accu-check daily, Continue DM meds as directed. Monitor Diet/Nutritional support. Monitor mental status progression. Monitor behavioral health status. Pain Management. Physical therapy/Occupational therapy. Fall precaution, frequent nursing rounds, and as needed restraints to prevent fall. Safety precaution. Supportive care. Continue collaborating with consulting specialists, case management and nursing team. Will Monitor patient and continue present care management. Nutritional Asmnt/Malnutr-PDOC - Dietary Evaluation Malnutrition Findings (Please click <Entered> for more info): Nutritional Asmnt/Malnutrition Start: 10/21/18 09: 36 Text: Status: Complete Freq: Protocol: Document 10/21/18 09:37 MARIANGEL (Rec: 10/21/18 09:41 MARIANGEL [email or web address]) Nutritional Asmnt/Malnutrition Patient General Information Nutritional Screening High Risk Diagnosis Failure to thrive Pertinent Medical Hx/Surgical Hx HTN, CAD, Dementia, Encephalopathy, dysphagia, multiple UTIs, FTT Subjective Information Pt is a 88-year-old female admitted on 10/20 c/o dizziness and weakness. Pt has noted appetite change, poor PO intake. Per Consultation (10/20 ), nursing staff is to encourage and monitor PO intake. Calorie count will be considered to assess how much the Pt is eating. If Pt is unable to tolerate meals PEG placement will be considered. Pt is AAOx2, only alert to herself. Spoke with RNAnnabelle, Pt ate about 20% of breakfast . Provided RN with an Ensure Enlive to offer when Pt wakes up before lunch. Adding Ensure Enlive between meals to encourage improved nutrition intake. HT: 53 WT: 105 LB (47.73 kg) BMI: 18.60 (Normal) GI: hypoactive, flat, soft, non-tender BM: Not noted Skin: WNL, warm, dry, elastic, intact Magnus: 16 Diet Order: Mechanical Soft Estimated Energy Needs: ( Geriatric, CBW) 9413-9364 kcals (25-30 kcals/ kg) 47-57g Pro (1.0-1.2 g/kg) 4318-0421 ml (25-30 ml/kg) Current Diet Order/ Nutrition Support Mechanical Soft Patient / S.O Can't verbalize diet edu Pertinent Medications No active medications to note Pertinent Labs 10/21: Hgb/Hct 13.6/40.8, AST 12 Nutritional Hx/Data Height 1.6 m Height (Calculated Centimeters) 160.0 Current Weight (lbs) 47.627 kg Weight (Calculated Kilograms) 47.6 Weight (Calculated Grams) 48251.2 [place] Body Weight 115 LB (52.27 kg) % [place] Body Weight 91 Body Mass Index (BMI) 18.6 Weight Status Approriate GI Symptoms GI Symptoms None Last BM Not noted Skin Integrity/Comment: Skin: WNL, warm, dry, elastic, intact Magnus: 16 Current %PO Negligible < 25% Estimated Nutritional Goals BEE in Kcals: Using Current wt Calories/Kcals/Kg 25-30 Kcals Calculated 1151-5669 Protein: Using Current wt Protein g/k.0-1.2 Protein Calculated 47-57 Fluid: ml 3566-1124 ml (25-30 ml/kg) Nutritional Problem 1. Problem Problem Inadequate energy intake Etiology r/t possible poor appetite/ depression Signs/Symptoms: aeb RN sated Pt ate 20% breakfast and Dx FTT with poor PO intake. Intervention/Recommendation Comments 1. Continue with mechanical soft diet as ordered. 2. Nursing staff to continue improved PO intake encouragement per MD order. 3. Add Ensure Enlive between meals (completed). Expected Outcomes/Goals Expected Outcomes/Goals 1. PO intake to meet 75% of nutritional needs. 2. Monitor PO intake, wt, nutrition related labs, and skin integrity. 3. F/U as high risk in 2-3 days, 10/23-10/24
--- NOTE | 2018-10-25 12:06 | General Progress Note ---
Subjective - Review of Systems Service Date: 10/25/18 Subjective: Agents clinically stable still poor intake Objective - Results Result Diagrams: 10/23/18 09:00 10/23/18 09:00 Recent Labs: Laboratory Last Values WBC 5.4 Th/cmm (4.8-10.8) 10/23/18 09:00 RBC 4.44 Mil/cmm (3.80-5.20) 10/23/18 09:00 Hgb 13.5 gm/dL (12-16) 10/23/18 09:00 Hct 40.0 % (41.0-60) L 10/23/18 09:00 MCV 90.0 fl (81-100) 10/23/18 09:00 MCH 30.4 pg (27.0-31.0) 10/23/18 09:00 MCHC Differential 33.7 pg (28.0-36.0) 10/23/18 09:00 RDW 14.2 % (11.5-20.0) 10/23/18 09:00 Plt Count 308 Th/cmm (150-400) 10/23/18 09:00 MPV 6.9 fl 10/23/18 09:00 Neutrophils % 65.9 % (40.0-80.0) 10/23/18 09:00 Lymphocytes % 25.5 % (20.0-50.0) 10/23/18 09:00 Monocytes % 6.9 % (2.0-10.0) 10/23/18 09:00 Eosinophils % 1.0 % (0.0-5.0) 10/23/18 09:00 Basophils % 0.7 % (0.0-2.0) 10/23/18 09:00 Sodium 137 mEq/L (136-145) 10/23/18 09:00 Potassium 3.8 mEq/L (3.5-5.1) 10/23/18 09:00 Chloride 104 mEq/L (98-107) 10/23/18 09:00 Carbon Dioxide 24.2 mEq/L (21.0-31.0) 10/23/18 09:00 Anion Gap 12.6 (7.0-16.0) 10/23/18 09:00 BUN 16 mg/dL (7-25) 10/23/18 09:00 Creatinine 0.7 mg/dL (0.6-1.2) 10/23/18 09:00 Est GFR ( Amer) TNP 10/23/18 09:00 Est GFR (Non-Af Amer) TNP 10/23/18 09:00 BUN/Creatinine Ratio 22.9 10/23/18 09:00 Glucose 133 mg/dL (70-105) H 10/23/18 09:00 Whole Bld Lactic Acid 0.86 mmol/L (0.60-1.99) 10/20/18 19:35 Calcium 9.1 mg/dL (8.6-10.3) 10/23/18 09:00 Total Bilirubin 0.7 mg/dL (0.3-1.0) 10/21/18 05:45 AST 17 U/L (13-39) 10/21/18 05:45 ALT 10 U/L (7-52) 10/21/18 05:45 Alkaline Phosphatase 53 U/L (34-104) 10/21/18 05:45 Troponin I 0.01 ng/mL (0.01-0.05) 10/20/18 19:35 Total Protein 6.1 gm/dL (6.0-8.3) 10/21/18 05:45 Albumin 3.5 gm/dL (3.7-5.3) L 10/21/18 05:45 Globulin 2.6 gm/dL 10/21/18 05:45 Albumin/Globulin Ratio 1.4 (1.0-1.8) 10/21/18 05:45 Triglycerides 192 mg/dL (<150) H 10/21/18 05:45 Cholesterol 203 mg/dL (<200) H 10/21/18 05:45 LDL Cholesterol Direct 146 mg/dL (75-193) 10/21/18 05:45 HDL Cholesterol 44 mg/dL (23-92) 10/21/18 05:45 TSH 1.40 uIU/ml (0.34-5.60) 10/21/18 05:45 Urine Source CLEAN C 10/20/18 21:20 Urine Color YELLOW 10/20/18 21:20 Urine Clarity CLEAR (CLEAR) 10/20/18 21:20 Urine pH 5.5 (4.6 - 8.0) 10/20/18 21:20 Ur Specific [place] 1.025 (1.005-1.030) 10/20/18 21:20 Urine Protein NEGATIVE mg/dL (NEGATIVE) 10/20/18 21:20 Urine Glucose (UA) 100 mg/dL (NEGATIVE) H 10/20/18 21:20 Urine Ketones NEGATIVE mg/dL (NEGATIVE) 10/20/18 21:20 Urine Blood NEGATIVE (NEGATIVE) 10/20/18 21:20 Urine Nitrate NEGATIVE (NEGATIVE) 10/20/18 21:20 Urine Bilirubin NEGATIVE (NEGATIVE) 10/20/18 21:20 Urine Urobilinogen 0.2 E.U./dL (0.2 - 1.0) 10/20/18 21:20 Ur Leukocyte Esterase NEGATIVE (NEGATIVE) 10/20/18 21:20 Urine RBC 2-5 /hpf (0-5) 10/20/18 21:20 Urine WBC 0-2 /hpf (0-5) 10/20/18 21:20 Ur Epithelial Cells MODERATE /lpf (FEW) 10/20/18 21:20 Urine Bacteria 1+ /hpf (NONE SEEN) H 10/20/18 21:20 - Physical Exam Vitals and I&O: Vital Signs Temp 97.0 F 10/25/18 11:41 Pulse 71 10/25/18 11:41 Resp 18 10/25/18 11:41 BP 142/61 10/25/18 11:41 Pulse Ox 98 10/25/18 11:41 Intake & Output 10/24/18 10/25/18 10/25/18 18:59 06:59 18:59 Intake Total 120 150 Balance 120 150 Weight (lbs) 45.813 kg 47.854 kg Intake: Oral 120 150 Other: # Voids 2 Weight Source Bedscale Bedscale Active Medications: Current Medications Acetaminophen (Tylenol) 650 mg PO Q6H PRN PRN Reason: PAIN Stop: 12/20/18 09:10 Aspirin (Aspirin Chewable) 81 mg PO DAILY [facility] Stop: 12/23/18 08:59 Last Admin: 10/25/18 08:45 Dose: 81 mg Atenolol (Tenormin) 25 mg PO DAILY [facility] Stop: 12/21/18 08:59 Last Admin: 10/25/18 08:45 Dose: 25 mg Atorvastatin Calcium (Lipitor) 20 mg PO DAILY [facility]; Protocol Stop: 12/23/18 08:59 Last Admin: 10/25/18 08:45 Dose: 20 mg Cholecalciferol (Vitamin D3) 5,000 iu PO DAILY [facility] Stop: 12/21/18 08:59 Last Admin: 10/25/18 08:45 Dose: 5,000 iu Docusate Sodium (Colace) 100 mg PO HS [facility] Stop: 12/20/18 20:59 Last Admin: 10/24/18 20:40 Dose: 100 mg Ceftriaxone Sodium 1 gm/ (Sodium Chloride) 50 mls @ 100 mls/hr IV Q24HR [facility] Stop: 10/27/18 20:29 Last Admin: 10/24/18 20:40 Dose: 100 mls/hr Lactobacillus Rhamnosus (Culturelle 15b) 1 each PO DAILY [facility] Stop: 12/21/18 16:59 Last Admin: 10/25/18 08:45 Dose: 1 each Megestrol Acetate (Megace) 400 mg PO DAILY [facility]; Protocol Stop: 12/22/18 15:59 Last Admin: 10/25/18 08:44 Dose: 400 mg Miscellaneous (Probiotic Screen) 1 ea MC PRN PRN PRN Reason: PROTOCOL Stop: 12/21/18 13:51 Mupirocin (Bactroban Oint) 1 appl NS BID [facility] Stop: 10/27/18 17:01 Last Admin: 10/25/18 08:44 Dose: 1 appl General: No acute distress HEENT: Atraumatic, PERRLA, EOMI Neck: Supple, JVD, Thyromegaly Cardiovascular: Regular rate, Normal S1, Normal S2 Lungs: Clear to auscultation Abdomen: Bowel sounds, Soft, no Tender Assessment/Plan - Assessment Assessment: Protein calorie malnutrition stable angina Hypertension Urinary tract infection Dementia Hyperlipidemia Osteoporosis - Plan Plan: Continue present management for GI evaluation Nutritional Asmnt/Malnutr-PDOC - Dietary Evaluation Malnutrition Findings (Please click <Entered> for more info): Nutritional Asmnt/Malnutrition Start: 10/21/18 09: 36 Text: Status: Complete Freq: Protocol: Document 10/21/18 09:37 MARIANGEL (Rec: 10/21/18 09:41 MARIANGEL [id number]) Nutritional Asmnt/Malnutrition Patient General Information Nutritional Screening High Risk Diagnosis Failure to thrive Pertinent Medical Hx/Surgical Hx HTN, CAD, Dementia, Encephalopathy, dysphagia, multiple UTIs, FTT Subjective Information Pt is a 88-year-old female admitted on 10/20 c/o dizziness and weakness. Pt has noted appetite change, poor PO intake. Per Consultation (10/20 ), nursing staff is to encourage and monitor PO intake. Calorie count will be considered to assess how much the Pt is eating. If Pt is unable to tolerate meals PEG placement will be considered. Pt is AAOx2, only alert to herself. Spoke with RNAnnabelle, Pt ate about 20% of breakfast . Provided RN with an Ensure Enlive to offer when Pt wakes up before lunch. Adding Ensure Enlive between meals to encourage improved nutrition intake. HT: 53 WT: 105 LB (47.73 kg) BMI: 18.60 (Normal) GI: hypoactive, flat, soft, non-tender BM: Not noted Skin: WNL, warm, dry, elastic, intact Magnus: 16 Diet Order: Mechanical Soft Estimated Energy Needs: ( Geriatric, CBW) 5048-9946 kcals (25-30 kcals/ kg) 47-57g Pro (1.0-1.2 g/kg) 6534-6580 ml (25-30 ml/kg) Current Diet Order/ Nutrition Support Mechanical Soft Patient / S.O Can't verbalize diet edu Pertinent Medications No active medications to note Pertinent Labs 10/21: Hgb/Hct 13.6/40.8, AST 12 Nutritional Hx/Data Height 1.6 m Height (Calculated Centimeters) 160.0 Current Weight (lbs) 47.627 kg Weight (Calculated Kilograms) 47.6 Weight (Calculated Grams) 75833.2 Bud Body Weight 115 LB (52.27 kg) % Bud Body Weight 91 Body Mass Index (BMI) 18.6 Weight Status Approriate GI Symptoms GI Symptoms None Last BM Not noted Skin Integrity/Comment: Skin: WNL, warm, dry, elastic, intact Magnus: 16 Current %PO Negligible < 25% Estimated Nutritional Goals BEE in Kcals: Using Current wt Calories/Kcals/Kg 25-30 Kcals Calculated 9829-9362 Protein: Using Current wt Protein g/k.0-1.2 Protein Calculated 47-57 Fluid: ml 6215-4292 ml (25-30 ml/kg) Nutritional Problem 1. Problem Problem Inadequate energy intake Etiology r/t possible poor appetite/ depression Signs/Symptoms: aeb RN sated Pt ate 20% breakfast and Dx FTT with poor PO intake. Intervention/Recommendation Comments 1. Continue with mechanical soft diet as ordered. 2. Nursing staff to continue improved PO intake encouragement per MD order. 3. Add Ensure Enlive between meals (completed). Expected Outcomes/Goals Expected Outcomes/Goals 1. PO intake to meet 75% of nutritional needs. 2. Monitor PO intake, wt, nutrition related labs, and skin integrity. 3. F/U as high risk in 2-3 days, 10/23-10/24
--- NOTE | 2018-10-25 16:24 | GI Progress Note ---
Subjective - Review of Systems Service Date: 10/25/18 Events since last encounter: pt eating about 75% of meals and she is eating snacks GI OBJECTIVE - Results Result Diagrams: 10/23/18 09:00 10/23/18 09:00 Recent Labs: Laboratory Last Values WBC 5.4 Th/cmm (4.8-10.8) 10/23/18 09:00 RBC 4.44 Mil/cmm (3.80-5.20) 10/23/18 09:00 Hgb 13.5 gm/dL (12-16) 10/23/18 09:00 Hct 40.0 % (41.0-60) L 10/23/18 09:00 MCV 90.0 fl (81-100) 10/23/18 09:00 MCH 30.4 pg (27.0-31.0) 10/23/18 09:00 MCHC Differential 33.7 pg (28.0-36.0) 10/23/18 09:00 RDW 14.2 % (11.5-20.0) 10/23/18 09:00 Plt Count 308 Th/cmm (150-400) 10/23/18 09:00 MPV 6.9 fl 10/23/18 09:00 Neutrophils % 65.9 % (40.0-80.0) 10/23/18 09:00 Lymphocytes % 25.5 % (20.0-50.0) 10/23/18 09:00 Monocytes % 6.9 % (2.0-10.0) 10/23/18 09:00 Eosinophils % 1.0 % (0.0-5.0) 10/23/18 09:00 Basophils % 0.7 % (0.0-2.0) 10/23/18 09:00 Sodium 137 mEq/L (136-145) 10/23/18 09:00 Potassium 3.8 mEq/L (3.5-5.1) 10/23/18 09:00 Chloride 104 mEq/L (98-107) 10/23/18 09:00 Carbon Dioxide 24.2 mEq/L (21.0-31.0) 10/23/18 09:00 Anion Gap 12.6 (7.0-16.0) 10/23/18 09:00 BUN 16 mg/dL (7-25) 10/23/18 09:00 Creatinine 0.7 mg/dL (0.6-1.2) 10/23/18 09:00 Est GFR ( Amer) TNP 10/23/18 09:00 Est GFR (Non-Af Amer) TNP 10/23/18 09:00 BUN/Creatinine Ratio 22.9 10/23/18 09:00 Glucose 133 mg/dL (70-105) H 10/23/18 09:00 Whole Bld Lactic Acid 0.86 mmol/L (0.60-1.99) 10/20/18 19:35 Calcium 9.1 mg/dL (8.6-10.3) 10/23/18 09:00 Total Bilirubin 0.7 mg/dL (0.3-1.0) 10/21/18 05:45 AST 17 U/L (13-39) 10/21/18 05:45 ALT 10 U/L (7-52) 10/21/18 05:45 Alkaline Phosphatase 53 U/L (34-104) 10/21/18 05:45 Troponin I 0.01 ng/mL (0.01-0.05) 10/20/18 19:35 Total Protein 6.1 gm/dL (6.0-8.3) 10/21/18 05:45 Albumin 3.5 gm/dL (3.7-5.3) L 10/21/18 05:45 Globulin 2.6 gm/dL 10/21/18 05:45 Albumin/Globulin Ratio 1.4 (1.0-1.8) 10/21/18 05:45 Triglycerides 192 mg/dL (<150) H 10/21/18 05:45 Cholesterol 203 mg/dL (<200) H 10/21/18 05:45 LDL Cholesterol Direct 146 mg/dL (75-193) 10/21/18 05:45 HDL Cholesterol 44 mg/dL (23-92) 10/21/18 05:45 TSH 1.40 uIU/ml (0.34-5.60) 10/21/18 05:45 Urine Source CLEAN C 10/20/18 21:20 Urine Color YELLOW 10/20/18 21:20 Urine Clarity CLEAR (CLEAR) 10/20/18 21:20 Urine pH 5.5 (4.6 - 8.0) 10/20/18 21:20 Ur Specific [place] 1.025 (1.005-1.030) 10/20/18 21:20 Urine Protein NEGATIVE mg/dL (NEGATIVE) 10/20/18 21:20 Urine Glucose (UA) 100 mg/dL (NEGATIVE) H 10/20/18 21:20 Urine Ketones NEGATIVE mg/dL (NEGATIVE) 10/20/18 21:20 Urine Blood NEGATIVE (NEGATIVE) 10/20/18 21:20 Urine Nitrate NEGATIVE (NEGATIVE) 10/20/18 21:20 Urine Bilirubin NEGATIVE (NEGATIVE) 10/20/18 21:20 Urine Urobilinogen 0.2 E.U./dL (0.2 - 1.0) 10/20/18 21:20 Ur Leukocyte Esterase NEGATIVE (NEGATIVE) 10/20/18 21:20 Urine RBC 2-5 /hpf (0-5) 10/20/18 21:20 Urine WBC 0-2 /hpf (0-5) 10/20/18 21:20 Ur Epithelial Cells MODERATE /lpf (FEW) 10/20/18 21:20 Urine Bacteria 1+ /hpf (NONE SEEN) H 10/20/18 21:20 - Physical Exam Vitals and I&O: Vital Signs Temp 97.2 F 10/25/18 15:44 Pulse 69 10/25/18 15:44 Resp 18 10/25/18 15:44 BP 118/88 10/25/18 15:44 Pulse Ox 97 10/25/18 15:44 Intake & Output 10/24/18 10/25/18 10/25/18 18:59 06:59 18:59 Intake Total 120 150 200 Balance 120 150 200 Weight (lbs) 45.813 kg 47.854 kg 47.854 kg Intake: Oral 120 150 200 Other: # Voids 2 2 # Bowel Movements 1 Weight Source Bedscale Bedscale Bedscale Active Medications: Current Medications Acetaminophen (Tylenol) 650 mg PO Q6H PRN PRN Reason: PAIN Stop: 12/20/18 09:10 Aspirin (Aspirin Chewable) 81 mg PO DAILY [facility] Stop: 12/23/18 08:59 Last Admin: 10/25/18 08:45 Dose: 81 mg Atenolol (Tenormin) 25 mg PO DAILY [facility] Stop: 12/21/18 08:59 Last Admin: 10/25/18 08:45 Dose: 25 mg Atorvastatin Calcium (Lipitor) 20 mg PO DAILY [facility]; Protocol Stop: 12/23/18 08:59 Last Admin: 10/25/18 08:45 Dose: 20 mg Cholecalciferol (Vitamin D3) 5,000 iu PO DAILY [facility] Stop: 12/21/18 08:59 Last Admin: 10/25/18 08:45 Dose: 5,000 iu Docusate Sodium (Colace) 100 mg PO HS [facility] Stop: 12/20/18 20:59 Last Admin: 10/24/18 20:40 Dose: 100 mg Ceftriaxone Sodium 1 gm/ (Sodium Chloride) 50 mls @ 100 mls/hr IV Q24HR [facility] Stop: 10/27/18 20:29 Last Admin: 10/24/18 20:40 Dose: 100 mls/hr Lactobacillus Rhamnosus (Culturelle 15b) 1 each PO DAILY [facility] Stop: 12/21/18 16:59 Last Admin: 10/25/18 08:45 Dose: 1 each Megestrol Acetate (Megace) 400 mg PO DAILY [facility]; Protocol Stop: 12/22/18 15:59 Last Admin: 10/25/18 08:44 Dose: 400 mg Miscellaneous (Probiotic Screen) 1 ea MC PRN PRN PRN Reason: PROTOCOL Stop: 12/21/18 13:51 Mupirocin (Bactroban Oint) 1 appl NS BID [facility] Stop: 10/27/18 17:01 Last Admin: 10/25/18 16:03 Dose: 1 appl General: Cooperative HEENT: Atraumatic, PERRLA Neck: Thyromegaly Cardiovascular: Regular rate, Normal S2 Lungs: Clear to auscultation Abdomen: Bowel sounds Assessment/Plan - Assessment Assessment: 1. Poor PO intake 2. Failure to thrive 3. Dementia -encourage PO intake - improving -calorie count; if insufficient, discuss with family about PEG tube placement -Supportive care and management
--- NOTE | 2018-10-25 23:06 | Cardiology ---
10/24/2018 ECHOCARDIOGRAM REPORT PATIENT OF: Dr. Weinstein. M-MODE ECHOCARDIOGRAM: Mitral valve, anterior leaflet of the mitral valve shows normal excursion, EF velocity. Posterior leaflet of the mitral valve shows normal excursion. Left ventricular posterior wall shows increased thickness, normal excursion. Interventricular septum shows increased thickness, normal excursion, hypertrophy of the left ventricle, ejection fraction 70%. Left atrium normal. Aortic root shows normal dimension, normal excursion of aortic leaflets. CONCLUSION: Hypertrophy of the left ventricle, ejection fraction 70%. 2D ECHO: Long axis view showed normal sized left ventricle with normal wall motion. Mitral valve shows normal excursion. Left atrium normal. Aortic root shows normal dimension, normal excursion of aortic leaflets. Short axis view of mitral valve normal. Short axis view of aortic valve normal. Apical four-chamber view showed normal sized left ventricle, left atrium, right ventricle, right atrium, tricuspid and mitral valve. Ejection fraction 70%. CONCLUSION: Hypertrophy of the left ventricle, ejection fraction 70%. Doppler study shows mild mitral regurgitation, moderate tricuspid regurgitation, moderate aortic regurgitation. Pressure half-time 1440 milliseconds. Right ventricular systolic pressure 32 mmHg. [facility]# [id number]
--- NOTE | 2018-10-26 15:15 | Discharge Summary ---
General Discharge Summary - Discharge Summary Date of Admission: 10/20/18 Admitting Diagnosis: Increased weakness Discharge Date: 10/25/18 Discharge Diagnosis: Failure to thrive-treated, improving. Htn-stable. UTI- Treated, resolving. History of CAD. Generalized weakness-Treating, Improving. Moderate protein calorie [id number]. Dementia-well controlled. Dysphagia-Treating, Improving. Laboratory Findings: see labs Hospital Course: DISCHARGE SUMMARY Catarina Heredia : 1930 Date of Admission is 10/20/2018. Date of Discharge is 10/25/2018. ADMITTING DIAGNOSIS: Increased Weakness. Failure to thrive. UTI. Hypertension. History of CAD. Dementia. Moderate protein-calorie malnutrition. History of Encephalopathy. Dysphagia. History of Recurrent UTIs. DISCHARGE DIAGNOSIS (es): Increased Weakness-Treated, Improving. Failure to thrive- Treated, Improving. UTI- Treated, Resolving. Hypertension-Stable. History of CAD. Dementia- Stable. Moderate protein-calorie malnutrition- Treated, Improving. History of Encephalopathy. Dysphagia-Treated, resolving. History of Recurrent UTIs. Patient was admitted to: Med/Surg for the following evaluations and treatment. Hospital Course and Treatment Rendered: IV Antibiotics, Urinalysis, Lab tests, Chest x-ray, Monitor vitals, Supportive care, Monitor diet, Nutritional support , Fall precaution, Monitor mental status, Cardiology consult, Neurology consult , GI consult and Internal medicine consult. Adjustment of medication: IV Antibiotics. The course of hospitalization was uncomplicated and the course of the treatments was uneventful. CONSULT: Cardiology consult, Neurology consult, GI consult and Internal medicine consult. Diagnostic Study (ies): Chest x-ray. DISCHARGE CONDITION: Stable Patient discharged to [facility]. Activity: Resume normal activity as tolerated. Diet: Resume previous diet. Medications: Please see medication reconciliation sheet I will Follow-up with patient with in x 2 days. Discharge Instructions: Patient/Family instructed on diagnosis, follow-up, and diagnostic testing. Greater than 30 minutes was spent with patient on discharge. Health Concerns: Failure to thrive and Increased weakness. Assessment: Increased Weakness-Treated, Improving. Failure to thrive- Treated, Improving. UTI- Treated, Resolving. Hypertension-Stable. History of CAD. Dementia- Stable. Moderate protein-calorie malnutrition- Treated, Improving. History of Encephalopathy. Dysphagia-Treated, resolving. History of Recurrent UTIs. Plan of Treatment: Patient was admitted to: Med/Surg for the following evaluations and treatment. Hospital Course and Treatment Rendered: IV Antibiotics, Urinalysis, Lab tests, Chest x-ray, Monitor vitals, Supportive care, Monitor diet, Nutritional support , Fall precaution, Monitor mental status, Cardiology consult, Neurology consult , GI consult and Internal medicine consult. Adjustment of medication: IV Antibiotics. The course of hospitalization was uncomplicated and the course of the treatments was uneventful. Care Plan Goals: Hospital Course and Treatment Rendered: IV Antibiotics, Urinalysis, Lab tests, Chest x-ray, Monitor vitals, Supportive care, Monitor diet, Nutritional support , Fall precaution, Monitor mental status, Cardiology consult, Neurology consult , GI consult and Internal medicine consult. Condition at Discharge: Stable Disposition: Discharge/Transfered to SNF Home Medications: Home Medication Medication Instructions Recorded Type Acetaminophen [Pain Reliever] 650 mg PO Q6H PRN 08/17/18 History Cholecalciferol (Vitamin D3) 1 cap PO DAILY 08/17/18 History [Vitamin D3] Docusate Sodium [Colace] 100 mg PO HS 08/17/18 History Magnesium Hydroxide [Milk of 30 ml PO DAILY PRN 08/17/18 History Magnesia] Atenolol [Tenormin*] 25 mg PO DAILY tab 08/20/18 Rx Losartan Potassium [Cozaar] 25 mg PO DAILY tab 08/20/18 Rx Lorazepam [Ativan] 1 mg PO Q6HR PRN 10/20/18 History Melatonin 3 mg PO HS 10/20/18 History Multivitamin w/ Minerals 1 tab PO DAILY 10/20/18 History [Theragran M] Activity: As Tolerated Discharge Diet: Other (see orders.) Consults and Follow-Up: Armen Weinstein [Primary Care Provider] - Consulting Speciality: Other Instructions: Failure to Thrive, Adult, [id number]
== END 2018-10-25 17:50 | DRG 689 ==
LOC: ER 19:08 → MSI 21:30
PROVIDERS: ADMIT Internal Medicine; ATTEND Internal Medicine
DX: N39.0 Urinary tract infection, site not specified (principal); G93.41 Metabolic encephalopathy; E44.0 Moderate protein-calorie malnutrition; Z68.1 Body mass index [BMI] 19.9 or less, adult; G93.40 Encephalopathy, unspecified; F03.90 Unspecified dementia, unspecified severity, without behavioral disturbance, psychotic disturbance, mood disturbance, and anxiety; I10 Essential (primary) hypertension; R42 Dizziness and giddiness; R62.7 Adult failure to thrive; R13.10 Dysphagia, unspecified; I25.119 Atherosclerotic heart disease of native coronary artery with unspecified angina pectoris; M81.0 Age-related osteoporosis without current pathological fracture; Z88.7 Allergy status to serum and vaccine; Z88.8 Allergy status to other drugs, medicaments and biological substances
CPT/HCPCS: 36415-UA; 71045-TC; 80048-TC; 80053-TC; 80061-TC; 81001-TC; 83605; 84443-TC; 84484-TC; 85025-TC; 93005; J0696